=== PATIENT | female | born 1950 | race Caucasian/White ===

== ENCOUNTER 2024-01-03 16:33 | Observation (INO) | payer MEDICARE, OTHER ==
--- NOTE | 2024-01-03 16:39 | ED ---
Altered Mental Status HPI - General Stated Complaint: Behavioral Time Seen by Provider: 01/03/24 16:34 Source: RN notes reviewed, old records reviewed Mode of arrival: ambulatory Limitations: altered mental status - History of Present Illness Initial Comments: Is a 73-year-old female to the ER for evaluation of altered mental status. Patient been acting appropriately for a few days now is a postoperative patient on pain medication at home. Patient received cosmetic surgery facelift and has since been not acting appropriately. No fevers no head injury no travel history no sick contacts MD Complaint: altered mental status, confusion, decreased responsiveness, intoxication, weakness -: days(s) Severity: moderate Consistency of Symptoms: getting worse Context: other (No drug or alcohol use, currently prescribed pain medication opiate) Associated Symptoms: denies other symptoms Treatments Prior to Arrival: other pre-hospital medication (0) - Related Data Home Medications Medication Instructions Recorded Confirmed Acetaminophen/Diphenhydramine 1 tab PO HS PRN 01/03/24 01/03/24 [Tylenol PM 500-25mg] Albuterol Inhaler [Ventolin Hfa 2 puff INHALATION RT-Q4H PRN 01/03/24 01/03/24 Inhaler] DULoxetine HCL [Cymbalta] 60 mg PO DAILY 01/03/24 01/03/24 Levothyroxine Sodium [Synthroid] 150 mcg PO DAILY 01/03/24 01/03/24 Methylphenidate HCl [Ritalin] 20 mg PO BID@0600,1300 01/03/24 01/03/24 Omeprazole 40 mg PO DAILY 01/03/24 01/03/24 Tirzepatide [Mounjaro] 5 mg SQ FR 01/03/24 01/03/24 Triamterene/Hydrochlorothiazid 1 tab PO DAILY 01/03/24 01/03/24 [Triamterene-Hctz 37.5-25 mg Tb] oxyCODONE-APAP 5-325MG [Percocet 1 tab PO Q6H 01/03/24 01/03/24 5-325 mg] Allergies Allergy/AdvReac Type Severity Reaction Status Date / Time No Known Allergies Allergy Verified 01/03/24 18:14 Review of Systems ROS Statement: Those systems with pertinent positive or pertinent negative responses have been documented in the HPI. ROS Other: All systems not noted in ROS Statement are negative. General Exam Limitations: altered mental status General appearance: alert, in no apparent distress Head exam: Present: atraumatic, normocephalic, normal inspection Eye exam: Present: normal appearance, PERRL, EOMI. Absent: scleral icterus, conjunctival injection, periorbital swelling ENT exam: Present: normal exam, mucous membranes moist Neck exam: Present: normal inspection. Absent: tenderness, meningismus, lymphadenopathy Respiratory exam: Present: normal lung sounds bilaterally. Absent: respiratory distress, wheezes, rales, rhonchi, stridor Cardiovascular Exam: Present: regular rate, normal rhythm, normal heart sounds. Absent: systolic murmur, diastolic murmur, rubs, gallop, clicks GI/Abdominal exam: Present: soft, normal bowel sounds. Absent: distended, tenderness, guarding, rebound, rigid Extremities exam: Present: normal inspection, full ROM, normal capillary refill. Absent: tenderness, pedal edema, joint swelling, calf tenderness Back exam: Present: normal inspection Neurological exam: Present: alert, oriented X3, CN II-XII intact Psychiatric exam: Present: normal affect, normal mood Skin exam: Present: warm, dry, intact, normal color. Absent: rash Course Vital Signs 01/03/24 01/03/24 01/03/24 16:44 19:00 21:00 Temperature 98.4 F Pulse Rate 72 77 82 Respiratory 20 18 18 Rate Blood Pressure 128/71 123/77 117/60 O2 Sat by Pulse 95 99 98 Oximetry - Reevaluation(s) Reevaluation #1: 01/03/24 22:07 Medical records reviewed Reevaluation #2: 01/03/24 22:07 Patient is still very delirious seeing people that are not there. 01/03/24 22:08 Talking to people who are not there 01/03/24 22:08 Patient is danger to herself Reevaluation #3: 01/03/24 22:08 Patient family informed results questions answered Reevaluation #4: Was pt. sent in by a medical professional or institution (, PA, SUBSTANCE ABUSE SERVICES DIRECTOR, urgent care, hospital, or shelter...) When possible be specific @ -no Did you speak to anyone other than the patient for history (EMS, parent, family, police, friend...)? What history was obtained from this source @ -no Did you review nursing and triage notes (agree or disagree)? Why? @ -agree Are old charts reviewed (outside hosp., previous admission, EMS record, old EKG, old radiological studies, urgent care reports/EKG's, shelter records)? Report findings @ -yes Differential Diagnosis (chest pain, altered mental status, abdominal pain women, abdominal pain men, vaginal bleeding, weakness, fever, dyspnea, syncope, headache, dizziness, GI bleed, back pain, seizure, CVA, palpatations, mental health, musculoskeletal)? @ -prior EKG interpreted by me (3pts min.). @ -yes X-rays interpreted by me (1pt min.). @ -yes negative for acute disease CT interpreted by me (1pt min.). @ -no U/S interpreted by me (1pt. min.). @ -no What testing was considered but not performed or refused? (CT, X-rays, U/S, labs)? Why? @ -none What meds were considered but not given or refused? Why? @ -none Did you discuss the management of the patient with other professionals (professionals i.e. , PA, SUBSTANCE ABUSE SERVICES DIRECTOR, lab, RT, psych nurse, family welfare social work professor, space systems operations manager, teacher, military police officer, director of casework)? Give summary @ -no Was smoking cessation discussed for >3mins.? @ -no Was critical care preformed (if so, how long)? @ -no Were there social determinants of health that impacted care today? How? (Homelessness, low income, unemployed, alcoholism, drug addiction, transportation, low edu. Level, literacy, decrease access to med. care, long-term, rehab)? @ -none Was there de-escalation of care discussed even if they declined (Discuss DNR or withdrawal of care, Hospice)? DNR status @ -no What co-morbidities impacted this encounter? (DM, HTN, Smoking, COPD, CAD, Cancer, CVA, ARF, Chemo, Hep., AIDS, mental health diagnosis, sleep apnea, morbid obesity)? @ -none Was patient admitted / discharged? Hospital course, mention meds given and route, prescriptions, significant lab abnormalities, going to OR and other pertinent info. @ - Undiagnosed new problem with uncertain prognosis? @ -no Drug Therapy requiring intensive monitoring for toxicity (Heparin, Nitro, Insulin, Cardizem)? @ -no Were any procedures done? @ -no Diagnosis/symptom? @ - Acute, or Chronic, or Acute on Chronic? @ -Acute Uncomplicated (without systemic symptoms) or Complicated (systemic symptoms)? @ -Complicated Side effects of treatment? @ -no Exacerbation, Progression, or Severe Exacerbation? @ -exacerbation Poses a threat to life or bodily function? How? (Chest pain, [place], [place], pneumonia, PE, COPD, DKA, ARF, appy, cholecystitis, CVA, Diverticulitis, Homicidal, Suicidal, threat to staff... and all critical care pts) @ -yes Reevaluation #5: Differential Altered Mental Status: Hypoglycemia, DKA, hypercapnia, ETOH, overdose, CO poisoning, trauma, myxedema coma, HTN encephalopathy, infection, encephalitis, psychosis, intercranial hemorrhage, hepatic encephalopathy, meningitis, CVA, this is not meant to be an all-inclusive list - Consultations Consultation #1: Poke with sound to admit this patient Medical Decision Making - Medical Decision Making 83 female will be admitted for altered mental status delirium acute - Lab Data Result diagrams: 01/03/24 17:28 Lab Results 01/03/24 01/03/24 01/03/24 Range/Units 17:28 17:28 17:28 WBC 6.5 (3.8-10.6) k/uL RBC 4.18 (3.80-5.40) m/uL Hgb 11.2 L (11.4-16.0) gm/dL Hct 35.6 (34.0-46.0) % MCV 85.1 (80.0-100.0) fL MCH 26.7 (25.0-35.0) pg MCHC 31.4 (31.0-37.0) g/dL RDW 14.3 (11.5-15.5) % Plt Count 219 (150-450) k/uL MPV 8.3 Neutrophils % 58 % Lymphocytes % 31 % Monocytes % 5 % Eosinophils % 3 % Basophils % 1 % Neutrophils # 3.8 (1.3-7.7) k/uL Lymphocytes # 2.0 (1.0-4.8) k/uL Monocytes # 0.3 (0-1.0) k/uL Eosinophils # 0.2 (0-0.7) k/uL Basophils # 0.1 (0-0.2) k/uL POC Glucose (mg/dL) (70-110) mg/dL POC Glu Director Digital Strategy ID Ammonia (<30) umol/L Urine Color Light Yellow Urine Appearance Cloudy H (Clear) Urine pH 8.0 (5.0-8.0) Ur Specific [place] 1.019 (1.001-1.035) Urine Protein Trace H (Negative) Urine Glucose (UA) Negative (Negative) Urine Ketones Negative (Negative) Urine Blood Negative (Negative) Urine Nitrite Negative (Negative) Urine Bilirubin Negative (Negative) Urine Urobilinogen <2.0 (<2.0) mg/dL Ur Leukocyte Esterase Trace H (Negative) Urine WBC 1 (0-5) /hpf Ur Squamous Epith Cells 7 H (0-4) /hpf Urine Bacteria Rare H (None) /hpf Urine Mucus Rare H (None) /hpf Salicylates <1.0 mg/dL Acetaminophen <10.0 ug/mL Serum Alcohol <10 mg/dL 01/03/24 01/03/24 01/03/24 Range/Units 17:28 17:28 17:39 WBC (3.8-10.6) k/uL RBC (3.80-5.40) m/uL Hgb (11.4-16.0) gm/dL Hct (34.0-46.0) % MCV (80.0-100.0) fL MCH (25.0-35.0) pg MCHC (31.0-37.0) g/dL RDW (11.5-15.5) % Plt Count (150-450) k/uL MPV Neutrophils % % Lymphocytes % % Monocytes % % Eosinophils % % Basophils % % Neutrophils # (1.3-7.7) k/uL Lymphocytes # (1.0-4.8) k/uL Monocytes # (0-1.0) k/uL Eosinophils # (0-0.7) k/uL Basophils # (0-0.2) k/uL POC Glucose (mg/dL) 107 (70-110) mg/dL POC Glu Director Digital Strategy ID Hetal Andino Ammonia <9 (<30) umol/L Urine Color Urine Appearance (Clear) Urine pH (5.0-8.0) Ur Specific [place] (1.001-1.035) Urine Protein (Negative) Urine Glucose (UA) (Negative) Urine Ketones (Negative) Urine Blood (Negative) Urine Nitrite (Negative) Urine Bilirubin (Negative) Urine Urobilinogen (<2.0) mg/dL Ur Leukocyte Esterase (Negative) Urine WBC (0-5) /hpf Ur Squamous Epith Cells (0-4) /hpf Urine Bacteria (None) /hpf Urine Mucus (None) /hpf Salicylates mg/dL Acetaminophen ug/mL Serum Alcohol <10 mg/dL - EKG Data -: EKG Interpreted by Me (EKG is sinus 62 WA 151 QRS 90 QTc 426) - Radiology Data Radiology results: report reviewed (CT brain negative for acutr diseae), image reviewed Disposition Clinical Impression: Altered mental status, Delirium Disposition: ADMITTED IP TO THIS [facility] Condition: Fair Is patient prescribed a controlled substance at d/c from ED?: No Referrals: Ward Scott MD [Primary Care Provider] - 1-2 days Time of Disposition: 22:00
[2024-01-03 17:40] LABS: Glucose,Whole Blood 107 mg/dL (70-110)
[2024-01-03 18:04] LABS: Basophils # (A) 0.1 k/uL (0-0.2); Basophils % (A) 1 %; Eosinophils # (A) 0.2 k/uL (0-0.7); Eosinophils % (A) 3 %; HCT 35.6 % (34.0-46.0); HGB 11.2 gm/dL (11.4-16.0); Lymphocytes % (A) 31 %; MCH 26.7 pg (25.0-35.0); MCHC 31.4 g/dL (31.0-37.0); MCV 85.1 fL (80.0-100.0); Mean Platelet Volume 8.3; Monocytes # (A) 0.3 k/uL (0-1.0); Monocytes % (A) 5 %; Neutrophils # (A) 3.8 k/uL (1.3-7.7); Neutrophils % (A) 58 %; Platelet Count 219 k/uL (150-450); RBC 4.18 m/uL (3.80-5.40); RDW 14.3 % (11.5-15.5); WBC 6.5 k/uL (3.8-10.6)
[2024-01-03 18:10] LABS: Acetaminophen <10.0 ug/mL; Alcohol <10 mg/dL; Salicylate <1.0 mg/dL
[2024-01-03 18:13] LABS: Appearance,Urine Cloudy (Clear); Bacteria,Urine Rare /hpf; Bilirubin,Urine Negative (Negative); Blood,Urine Negative (Negative); Color,Urine Light Yellow; Glucose,Urine (UA) Negative (Negative); Ketones,Urine Negative (Negative); Leukocyte Esterase,Urine Trace (Negative); Mucus,Urine Rare /hpf; Nitrite,Urine Negative (Negative); Protein,Urine Trace (Negative); Specific Gravity,Urine 1.019 (1.001-1.035); Squamous Epithelial Cell,Urine 7 /hpf (0-4); Urobilinogen,Urine <2.0 mg/dL (<2.0); WBC,Urine 1 /hpf (0-5)
[2024-01-03] MEDS: LORazepam 2 MG/ML INJ IV STA ×2 (19:09→22:22)
[2024-01-03] MEDS: SODIUM CHLORIDE 0.9% 500 ML 500 ML IV ONE (19:12)
--- NOTE | 2024-01-03 20:35 | CT ---
EXAMINATION TYPE: CT brain wo con CT DLP: 1107.4 mGycm, Automated exposure control for dose reduction was used. DATE OF EXAM: 01/03/2024 7:59 PM COMPARISON: None.. CLINICAL INDICATION:Female, 73 years old with history of Altered mental status, ams TECHNIQUE: Brain: Axial CT images of the brain were obtained with coronal and sagittal reformats created and rev iewed. Contrast used: None. Oral contrast used: None. FINDINGS: Extra-axial spaces: No abnormal extra-axial fluid collections. Basilar cisterns are patent. Ventricular system: Ventricles are nondilated. Incidental note made of cavum septum pellucidum/cavum vergae. Cerebral parenchyma: No increased attenuation to suggest acute intraparenchymal hemorrhage. The gra y-white matter interface appears maintained. Mild generalized brain atrophy. Scattered hypoattenuat ing areas are seen within the cerebral white matter, nonspecific but most often seen with chronic nelida rovascular ischemic changes; mild in degree. Cerebellum: No acute abnormality. Mass effect: No evidence of mass effect or midline shift. Intracranial vasculature: Unremarkable Soft tissues: There are multiple skin linn in the bilateral scalp. Visualized orbits: Orbital contents appear grossly intact. Calvarium/osseous structures: No evidence of calvarial fracture. Paranasal sinuses and mastoid air cells: Mild mucosal thickening throughout the ethmoid air cells. MR I is more sensitive for detecting acute processes such as infarct, and may be considered if clinicall y warranted. IMPRESSION: 1. No CT evidence of an acute intracranial abnormality. 2. Mild atrophy and chronic microvascular ischemic white matter changes.
[2024-01-03] MEDS ORDERED: NALOXONE 0.4 MG/ML 1 ML VIAL IV PRN (22:05)
[2024-01-03] MEDS ORDERED: LORazepam 2 MG/ML INJ IV PRN (22:07)
[2024-01-03] MEDS: SODIUM CHLORIDE 0.9% 1,000 ML IV SCH (22:22)
[2024-01-03 22:58] LABS: Amphetamine Screen,Urine Not Detected (NotDetected); Barbiturate Screen,Urine Not Detected (NotDetected); Benzodiazepines Screen,Urine Not Detected (NotDetected); Cocaine Screen,Urine Not Detected (NotDetected); Methadone Screen, Urine Not Detected (NotDetected); Opiate Screen,Urine Detected (NotDetected); Oxycodone Screen, Urine Detected (NotDetected); Phencyclidine Screen,Urine Not Detected (NotDetected); Tricyclic Antidepressant,Urine Not Detected (NotDetected); Urn Cannabinoid Scrn Not Detected (NotDetected)
[2024-01-03 23:10] LABS: ALT 12 U/L (4-34); African American GFR (CKD) >90 (>60 ml/min/1.73 sqM); Albumin 3.4 g/dL (3.5-5.0); Anion Gap 2 mmol/L; Blood Urea Nitrogen 15 mg/dL (7-17); Calcium 8.6 mg/dL (8.4-10.2); Carbon Dioxide 23 mmol/L (22-30); Chloride 115 mmol/L (98-107); Glucose 102 mg/dL (74-99); Non-African American GFR(CKD) >90 (>60 ml/min/1.73 sqM); Sodium 140 mmol/L (137-145)
[2024-01-03 23:21] LABS: Potassium 4.8 mmol/L (3.5-5.1); Total Bilirubin 0.7 mg/dL (0.2-1.3); Total Protein 6.4 g/dL (6.3-8.2)
[2024-01-03 23:22] LABS: AST 31 U/L (14-36); Alkaline Phosphatase 61 U/L (38-126)
--- NOTE | 2024-01-04 03:19 | P.HPIM ---
History of Present Illness H&P Date: 01/04/24 Patient is a 73-year-old female with a PMH of hypertension, hypothyroidism, asthma, who recently underwent a facelift 2 weeks ago who presents to the emergency room for hallucinations. The patient was somewhat confused at the time of interview and history thereby supplemented from the chart. The patient does report that she recently underwent the procedure and that she has been taking her pain medications and that she has had periods of confusion and where she has been seeing things that are not quite there. Reports having visual hallucinations at the time of interview. Denied any additional complaints. Denied experiencing chest discomfort, shortness of breath, fever, chills, cough, headaches, weakness, numbness, tingling. Reports she has been taking her Percocets at home. CT brain in the emergency room was unremarkable. EKG revealed sinus rhythm at [address]/T wave changes noted as reviewed by me. Laboratory evaluation revealed a WBC count of 6.5, hemoglobin 11.2, unremarkable UA, with urine toxicology positive for opiates and oxycodone. ED documentation reviewed and case discussed with ED provider. Review of systems: Pertinent positives and negatives as discussed in HPI, a complete review of systems was performed and all other systems are negative. Physical examination: Vital signs reviewed General: non toxic, no distress, appears at stated age, normal weight Derm: Preauricular face left incisions noted with some diffuse mild facial ecchymosis, warm Head: atraumatic, normocephalic, symmetric Eyes: EOMI, no lid lag, anicteric sclera, pupils equal round reactive to light ENT: Nose and ears atraumatic Neck: No cervical lymphadenopathy, trachea midline, supple Mouth: no lip lesion, mucus membranes moist Cardiovascular: S1S2 reg, no murmur, positive dorsalis pedis pulse bilateral, no edema Lungs: CTA bilateral, no rhonchi, no rales, no accessory muscle use Abdominal: soft, nontender to palpation, no guarding Ext: muscle strength 5 out of 5 in all 4 extremities grossly, no gross muscle atrophy, no contractures, Neuro: CN II-XI grossly intact, no gross focal neuro deficits Psych: Alert, oriented to person, place, and time, experiencing visual hallucinations Assessment: Altered mental status with hallucinations, suspect opiate delirium Chronic conditions: Hypertension, hypothyroidism, asthma Imaging: CT brain in the emergency room was unremarkable. EKG revealed sinus rhythm at [address]/T wave changes noted as reviewed by me. Data Review: Laboratory evaluation revealed a WBC count of 6.5, hemoglobin 11.2, unremarkable UA, with urine toxicology positive for opiates and oxycodone. Plan: Frequent reorientation Fall precautions Resume home medications Avoid opiates and further sedatives DVT prophylaxis: Lovenox subcu The patient is admitted with an anticipated less than 2 midnight stay for evaluation of delirium CODE STATUS: Full Code Discussed with: Patient Anticipated discharge place: Home Past Medical History History of Any Multi-Drug Resistant Organisms: None Reported Additional Past Surgical History / Comment(s): facelift 2023 Past Psychological History: ADD/ADHD Smoking Status: Unknown if ever smoked Past Alcohol Use History: None Reported Past Drug Use History: None Reported - Past Family History Mother Family Medical History: Hypertension Medications and Allergies Home Medications Medication Instructions Recorded Confirmed Type Acetaminophen/Diphenhydramine 1 tab PO HS PRN 01/03/24 01/03/24 History [Tylenol PM 500-25mg] Albuterol Inhaler [Ventolin Hfa 2 puff INHALATION RT-Q4H PRN 01/03/24 01/03/24 History Inhaler] DULoxetine HCL [Cymbalta] 60 mg PO DAILY 01/03/24 01/03/24 History Levothyroxine Sodium [Synthroid] 150 mcg PO DAILY 01/03/24 01/03/24 History Methylphenidate HCl [Ritalin] 20 mg PO BID@0600,1300 01/03/24 01/03/24 History Omeprazole 40 mg PO DAILY 01/03/24 01/03/24 History Tirzepatide [Mounjaro] 5 mg SQ FR 01/03/24 01/03/24 History Triamterene/Hydrochlorothiazid 1 tab PO DAILY 01/03/24 01/03/24 History [Triamterene-Hctz 37.5-25 mg Tb] oxyCODONE-APAP 5-325MG [Percocet 1 tab PO Q6H 01/03/24 01/03/24 History 5-325 mg] Allergies Allergy/AdvReac Type Severity Reaction Status Date / Time No Known Allergies Allergy Verified 01/03/24 18:14 Physical Exam Vitals: Vital Signs Temp Pulse Resp BP Pulse Ox 05/20/24 23:41 72 18 104/72 97 01/03/24 22:00 66 20 106/74 98 01/03/24 21:00 82 18 117/60 98 01/03/24 19:00 77 18 123/77 99 01/03/24 16:44 98.4 F 72 20 128/71 95 Intake and Output 01/03/24 01/03/24 01/04/24 14:59 22:59 06:59 Other: Weight 56.245 kg Results CBC & Chem 7: 01/03/24 17:28 01/03/24 22:13 Labs: Abnormal Lab Results - Last 24 Hours (Table) 01/03/24 01/03/24 01/03/24 Range/Units 17:28 17:28 17:28 Hgb 11.2 L (11.4-16.0) gm/dL Chloride (98-107) mmol/L Glucose (74-99) mg/dL Albumin (3.5-5.0) g/dL Urine Appearance Cloudy H (Clear) Urine Protein Trace H (Negative) Ur Leukocyte Esterase Trace H (Negative) Ur Squamous Epith Cells 7 H (0-4) /hpf Urine Bacteria Rare H (None) /hpf Urine Mucus Rare H (None) /hpf Urine Opiates Screen Detected H (NotDetected) Ur Oxycodone Screen Detected H (NotDetected) 01/03/24 Range/Units 22:13 Hgb (11.4-16.0) gm/dL Chloride 115 H (98-107) mmol/L Glucose 102 H (74-99) mg/dL Albumin 3.4 L (3.5-5.0) g/dL Urine Appearance (Clear) Urine Protein (Negative) Ur Leukocyte Esterase (Negative) Ur Squamous Epith Cells (0-4) /hpf Urine Bacteria (None) /hpf Urine Mucus (None) /hpf Urine Opiates Screen (NotDetected) Ur Oxycodone Screen (NotDetected) Thrombosis Risk Factor Assmnt - Choose All That Apply Any of the Below Risk Factors Present?: Yes Each Factor Represents 1 point: History of prior major surgery (<1month) Other Risk Factors: Yes Each Risk Factor Represents 2 Points: Age 61-74 years Other congenital or acquired thrombophilia - If yes, enter type in comment: No Thrombosis Risk Factor Assessment Total Risk Factor Score: 3 Thrombosis Risk Factor Assessment Level: Moderate Risk
[2024-01-04] MEDS: LEVOTHYROXINE 75 MCG TAB PO SCH (06:30)
[2024-01-04 07:10] LABS: Basophils # (A) 0.1 k/uL (0-0.2); Basophils % (A) 1 %; Eosinophils # (A) 0.1 k/uL (0-0.7); Eosinophils % (A) 2 %; HCT 37.2 % (34.0-46.0); HGB 11.7 gm/dL (11.4-16.0); Lymphocytes # (A) 2.1 k/uL (1.0-4.8); Lymphocytes % (A) 36 %; MCH 26.8 pg (25.0-35.0); MCHC 31.5 g/dL (31.0-37.0); Mean Platelet Volume 7.5; Monocytes # (A) 0.2 k/uL (0-1.0); Monocytes % (A) 3 %; Neutrophils # (A) 3.3 k/uL (1.3-7.7); Neutrophils % (A) 56 %; Platelet Count 232 k/uL (150-450); RBC 4.38 m/uL (3.80-5.40); RDW 14.4 % (11.5-15.5); WBC 5.9 k/uL (3.8-10.6)
[2024-01-04 07:22] LABS: ALT 11 U/L (4-34); AST 19 U/L (14-36); African American GFR (CKD) >90 (>60 ml/min/1.73 sqM); Albumin 3.4 g/dL (3.5-5.0); Alkaline Phosphatase 65 U/L (38-126); Anion Gap 3 mmol/L; Blood Urea Nitrogen 13 mg/dL (7-17); Calcium 9.2 mg/dL (8.4-10.2); Carbon Dioxide 26 mmol/L (22-30); Chloride 115 mmol/L (98-107); Glucose 108 mg/dL (74-99); Magnesium 2.1 mg/dL (1.6-2.3); Non-African American GFR(CKD) 90 (>60 ml/min/1.73 sqM); Phosphorus 3.8 mg/dL (2.5-4.5); Potassium 4.1 mmol/L (3.5-5.1); Sodium 144 mmol/L (137-145); Total Bilirubin 0.4 mg/dL (0.2-1.3); Total Protein 6.1 g/dL (6.3-8.2)
[2024-01-04] MEDS ORDERED: LORazepam 1 MG/0.5 ML VIAL IV PRN (08:10)
[2024-01-04] MEDS: ENOXAPARIN 40 MG/0.4 ML SYRINGE SQ SCH (08:55)
[2024-01-04] MEDS: DULoxetine HCL 60 MG CAPSULE.DR PO SCH (08:55)
[2024-01-04] MEDS: TRIAMTERENE-HCTZ 37.5-25MG 1 EACH CAP PO SCH (08:55)
[2024-01-04 09:43] VITALS: BP 117/74; PULSE 66; RESP 18; TEMP 98.5
--- NOTE | 2024-01-04 11:36 | P.DS ---
Providers Date of admission: 01/03/24 22:06 Expected date of discharge: 01/04/24 Attending physician: Loida Mariee MD Primary care physician: Ward Michelle [facility] Course: Altered mental status with hallucinations, suspect opiate delirium Chronic conditions: Hypertension, hypothyroidism, asthma Patient is a 73-year-old female with a PMH of hypertension, hypothyroidism, asthma, who recently underwent a facelift 2 weeks ago who presented to the emergency room for hallucinations. CT brain in the emergency room was unremarkable. EKG revealed sinus rhythm at [address]/T wave changes noted as reviewed by me. Laboratory evaluation revealed a WBC count of 6.5, hemoglobin 11.2, unremarkable UA, with urine toxicology positive for opiates and oxycodone. Patient's visual hallucinations improved after the discontinuation o f both Ritalin and oxycodone. Patient was advised to stop taking both of these medications and follow-up with the primary care physicians as well as her plastic surgeon for further recommendations. She was alert and oriented x 4 upon discharge. Gen: In NAD, non-toxic HEENT: normocephalic, atraumatic, hearing acuity is intant, mucous membranes moist CVS: perfusing all extremities well, no pitting edema, Respiratory: symmetric chest expansion, no accessory muscle use, GI: soft, NTTP, ND, : no suprapubic tenderness, no CVA tenderness MSK/Derm: no rashes, cyanosis Neuro: CN II-XII intact, no motor weakness, Psych: cooperative, euthymic mood, judgment and insight is intact Patient Condition at Discharge: Good Plan - Discharge Summary Discharge Rx Participant: No New Discharge Prescriptions: Continue DULoxetine HCL [Cymbalta] 60 mg PO DAILY Tirzepatide [Mounjaro] 5 mg SQ FR Levothyroxine Sodium [Synthroid] 150 mcg PO DAILY Triamterene/Hydrochlorothiazid [Triamterene-Hctz 37.5-25 mg Tb] 1 tab PO DAILY Omeprazole 40 mg PO DAILY Albuterol Inhaler [Ventolin Hfa Inhaler] 2 puff INHALATION RT-Q4H PRN PRN Reason: Shortness Of Breath Discontinued Methylphenidate HCl [Ritalin] 20 mg PO BID@0600,1300 oxyCODONE-APAP 5-325MG [Percocet 5-325 mg] 1 tab PO Q6H Acetaminophen/Diphenhydramine [Tylenol PM 500-25mg] 1 tab PO HS PRN PRN Reason: PAIN/SLEEP Discharge Medication List Albuterol Inhaler [Ventolin Hfa Inhaler] 2 puff INHALATION RT-Q4H PRN 01/03/24 [History] DULoxetine HCL [Cymbalta] 60 mg PO DAILY 01/03/24 [History] Levothyroxine Sodium [Synthroid] 150 mcg PO DAILY 01/03/24 [History] Omeprazole 40 mg PO DAILY 01/03/24 [History] Tirzepatide [Mounjaro] 5 mg SQ FR 01/03/24 [History] Triamterene/Hydrochlorothiazid [Triamterene-Hctz 37.5-25 mg Tb] 1 tab PO DAILY 01/03/24 [History] Follow up Appointment(s)/Referral(s): Ward Scott MD [Primary Care Provider] - 1-2 days Discharge Disposition: HOME SELF-CARE
== END 2024-01-04 12:38 | disposition home or self-care (01) ==
LOC: EC 16:33 → 6NMEDSUR 22:06
PROVIDERS: ADMIT Internal Medicine; ATTEND Internal Medicine
DX: R41.82 Altered mental status, unspecified (principal); R45.851 Suicidal ideations; I10 Essential (primary) hypertension; E03.9 Hypothyroidism, unspecified; J45.909 Unspecified asthma, uncomplicated; Z79.899 Other long term (current) drug therapy; Z82.49 Family history of ischemic heart disease and other diseases of the circulatory system; F90.9 Attention-deficit hyperactivity disorder, unspecified type
CPT/HCPCS: 96372; 96376; 96374; 99285; 36415; 93005; 80053 ×2; 82140; 83735; 84100; 85025 ×2; 81001; 80306; 80143; 80320; 80179; 70450; G0378 ×2; J2060; J1650

== ENCOUNTER → 2024-01-06 | Outpatient (CLI) | payer OTHER ==
[2024-01-07 02:35] LABS: ALT 13 U/L (8-44); AST 17 U/L (13-35); Albumin 4.3 g/dL (3.8-4.9); Albumin/Globulin Ratio 1.59 Ratio (1.60-3.17); Alkaline Phosphatase 75 U/L (41-126); BUN/Creat Ratio 21.89 Ratio (12.00-20.00); Blood Urea Nitrogen 19.7 mg/dL (9.0-27.0); Calcium 9.5 mg/dL (8.7-10.3); Carbon Dioxide 28.4 mmol/L (21.6-31.8); Chloride 104 mmol/L (96-109); Globulin 2.7 g/dL (1.6-3.3); Glucose 105 mg/dL (70-110); Potassium 4.2 mmol/L (3.5-5.5); Sodium 142 mmol/L (135-145); Total Bilirubin <0.2 mg/dL (0.3-1.2)
[2024-01-07 02:38] LABS: Basophils # (A) 0.06 X 10*3/uL (0.00-0.10); Basophils % (A) 0.7 %; Eosinophils # (A) 0.13 X 10*3/uL (0.04-0.35); Eosinophils % (A) 1.6 %; HCT 40.9 % (37.2-46.3); HGB 12.3 g/dL (12.0-15.0); Lymphocytes # (A) 2.63 X 10*3/uL (0.90-5.00); Lymphocytes % (A) 32.6 %; MCH 25.8 pg (27.0-32.0); MCHC 30.1 g/dL (32.0-37.0); MCV 85.7 FL (80.0-97.0); Monocytes # (A) 0.33 X 10*3/uL (0.20-1.00); Monocytes % (A) 4.1 %; NRBC Per 100 WBC 0 X 10*3/uL (0.00-0.01); Neutrophils # (A) 4.88 X 10*3/uL (1.80-7.70); Neutrophils % (A) 60.5 %; Platelet Count 307 X 10*3/uL (140-440); RBC 4.77 X 10*6/uL (4.10-5.20); RDW 14.7 % (11.5-14.5); WBC 8.07 X 10*3/uL (4.50-10.00)
== END | disposition home or self-care (01) ==
LOC: LABWHC1 14:41
PROVIDERS: ATTEND Family Medicine
DX: R41.0 Disorientation, unspecified (principal)
CPT/HCPCS: 36415; 80053; 85025

== ENCOUNTER → 2024-01-06 | Outpatient (CLI) | payer OTHER ==
--- NOTE | 2024-01-06 14:55 | CT ---
EXAMINATION TYPE: CT brain wo con DATE OF EXAM: 01/06/2024 COMPARISON: 01/03/2024 HISTORY: Disorientation. CT DLP: 1135 mGycm Automated exposure control for dose reduction was used. Findings: The ventricles, basal cisterns and sulci over the convexities are within normal limits and there is n o mass effect or shift of midline structures. No abnormal density is seen throughout the brain parenchyma and there is no acute intra or extra-axia l hemorrhage. The posterior fossa including the brainstem, fourth ventricle and cerebellar pontine angles appear no rmal. Intraorbital contents appear normal and symmetric. Visualized paranasal sinuses and mastoid air cells are well aerated. The calvarium is intact. There are skin linn in the scalp overlying the occipital bones and tempor al bones bilaterally. IMPRESSION: No significant abnormality seen. There is no acute bleed or mass effect.
== END | disposition home or self-care (01) ==
LOC: RADCTMAIN 14:25
PROVIDERS: ATTEND Family Medicine
DX: R41.0 Disorientation, unspecified (principal)
CPT/HCPCS: 70450

== ENCOUNTER 2024-05-13 22:30 | Observation (INO) | payer MEDICARE, OTHER ==
[2024-05-13 23:18] LABS: Basophils # (A) 0.1 k/uL (0-0.2); Basophils % (A) 1 %; Eosinophils # (A) 0.1 k/uL (0-0.7); Eosinophils % (A) 1 %; HCT 37.7 % (34.0-46.0); HGB 12.6 gm/dL (11.4-16.0); Lymphocytes # (A) 2.7 k/uL (1.0-4.8); Lymphocytes % (A) 34 %; MCH 27.6 pg (25.0-35.0); MCHC 33.4 g/dL (31.0-37.0); MCV 82.8 fL (80.0-100.0); Mean Platelet Volume 7.7; Monocytes # (A) 0.4 k/uL (0-1.0); Monocytes % (A) 4 %; Neutrophils # (A) 4.5 k/uL (1.3-7.7); Neutrophils % (A) 58 %; Platelet Count 223 k/uL (150-450); RBC 4.55 m/uL (3.80-5.40); RDW 13.8 % (11.5-15.5); WBC 7.9 k/uL (3.8-10.6)
[2024-05-13 23:29] LABS: ALT 21 U/L (4-34); AST 31 U/L (14-36); African American GFR (CKD) 51 (>60 ml/min/1.73 sqM); Albumin 3.9 g/dL (3.5-5.0); Alkaline Phosphatase 77 U/L (38-126); Anion Gap 6 mmol/L; Blood Urea Nitrogen 53 mg/dL (7-17); Calcium 9.9 mg/dL (8.4-10.2); Carbon Dioxide 24 mmol/L (22-30); Chloride 107 mmol/L (98-107); Glucose 118 mg/dL (74-99); Non-African American GFR(CKD) 44 (>60 ml/min/1.73 sqM); Potassium 2.9 mmol/L (3.5-5.1); Sodium 137 mmol/L (137-145); Total Bilirubin 0.9 mg/dL (0.2-1.3); Total Protein 6.7 g/dL (6.3-8.2)
[2024-05-13 23:39] LABS: NT-Pro-B-Type Natriuretic Pept 64 pg/mL
[2024-05-13 23:44] LABS: Partial Thromboplastin Time 23.4 sec (22.0-30.0); Prothrombin Time 11.2 sec (10.0-12.5)
[2024-05-13 23:52] LABS: Appearance,Urine Clear (Clear); Bacteria,Urine Rare /hpf; Bilirubin,Urine Negative (Negative); Blood,Urine Negative (Negative); Color,Urine Light Yellow; Glucose,Urine (UA) Negative (Negative); Hyaline Casts,Urine 67 /lpf (0-2); Ketones,Urine Negative (Negative); Leukocyte Esterase,Urine Trace (Negative); Mucus,Urine Rare /hpf; Nitrite,Urine Negative (Negative); PH, Urine 5.5 (5.0-8.0); Protein,Urine Negative (Negative); RBC,Urine 1 /hpf (0-5); Specific Gravity,Urine 1.019 (1.001-1.035); Squamous Epithelial Cell,Urine 4 /hpf (0-4); Urobilinogen,Urine <2.0 mg/dL (<2.0); WBC,Urine 3 /hpf (0-5)
--- NOTE | 2024-05-14 02:12 | XR ---
EXAM: XR Chest, 2 Views CLINICAL HISTORY: ITS.REASON XR Reason: difficulty breathing TECHNIQUE: Frontal and lateral views of the chest. COMPARISON: No previous studies. FINDINGS: Lungs: Unremarkable. No consolidative changes. Pleural space: Unremarkable. No pneumothorax. No pleural effusions. Heart: Heart is normal in size. No cardiomegaly. Mediastinum: Unremarkable. Normal mediastinal contour. 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 No acute fracture. Vasculature: Minimal atherosclerotic disease of the aortic knob. Upper abdomen: Surgical clips of the right upper quadrant are indicative of previous cholecystectomy. IMPRESSION: 1. Minimal atherosclerotic disease. 2. No consolidative changes or pleural effusions.
[2024-05-14] MEDS: SODIUM CHLORIDE 0.9% 500 ML 500 ML IV STA (02:52)
[2024-05-14] MEDS: POTASSIUM CHLORIDE ER 20 MEQ TAB.ER PO STA ×2 (02:53→12:43)
--- NOTE | 2024-05-14 03:01 | ED ---
General Adult HPI - General Chief complaint: Shortness of Breath Stated complaint: SOB, Chest pain, Back pain Time Seen by Provider: 05/13/24 23:07 Source: patient Mode of arrival: ambulatory Limitations: no limitations - History of Present Illness Initial comments: This patient is a 73-year-old woman who presents to have evaluation for constellation of symptoms. The patient states she was concerned because she thinks she has bug bites. She indicates a number of skin sores throughout the extremities and on the trunk. She states that her home had a flea infestation, but an respiratory care specialist had come out and treated the home, but she continues to have skin ulcers. The patient states this has been going on for a number of months, since she had a facelift performed in December or January. She also has been having palpitations and dyspnea. Patient denies fever or chills. No chest pain or productive cough. She has not noted worsening or relieving factors. No leg pain or swelling. No change in urination or bowel movements. -: month(s) Severity scale (1-10): 0 Consistency: intermittent Improves with: none Worsens with: none Associated Symptoms: rash, shortness of breath Treatments Prior to Arrival: none - Related Data Home Medications Medication Instructions Recorded Confirmed Albuterol Inhaler [Ventolin Hfa 2 puff INHALATION RT-Q4H PRN 01/03/24 05/14/24 Inhaler] Omeprazole 40 mg PO DAILY 01/03/24 05/14/24 Tirzepatide [Mounjaro] 5 mg SQ TU 01/03/24 05/14/24 Acetylcysteine [Nac] 500 mg PO DAILY 05/14/24 05/14/24 DULoxetine HCL [Cymbalta] 60 mg PO DAILY 05/14/24 05/14/24 Desonide [Cal-Joseph 0.05%] 1 applic TOPICAL BID 05/14/24 05/14/24 Doxepin [SINEquan] 10 - 20 mg PO HS PRN 05/14/24 05/14/24 Methylphenidate HCl [Ritalin] 20 mg PO BID 05/14/24 05/14/24 Mupirocin 2% Oint [Bactroban 2% 1 applic TOPICAL TID PRN 05/14/24 05/14/24 Oint] Nystatin [Nystatin Oral Susp] 5 ml PO DAILY 05/14/24 05/14/24 Ondansetron Odt [Zofran ODT] 8 mg PO Q8HR PRN 05/14/24 05/14/24 Pramipexole [Mirapex] 0.125 mg PO HS 05/14/24 05/14/24 Triamcinolone 0.1% Paste [Oralone 1 applic MUCOUS MEM BID 05/14/24 05/14/24 0.1% Paste] Previous Rx's Medication Instructions Recorded Permethrin 5% Cream [Elimite] 1 applic TOPICAL ONCE #60 gm 05/14/24 Levothyroxine Sodium 100 mcg PO DAILY #30 tab 05/15/24 Allergies Allergy/AdvReac Type Severity Reaction Status Date / Time No Known Allergies Allergy Verified 05/14/24 10:17 Review of Systems ROS Statement: Those systems with pertinent positive or pertinent negative responses have been documented in the HPI. ROS Other: All systems not noted in ROS Statement are negative. Constitutional: Denies: fever, chills, weakness Respiratory: Reports: as per HPI, dyspnea. Denies: cough, wheezes, hemoptysis Cardiovascular: Denies: chest pain, palpitations, orthopnea, edema, syncope Gastrointestinal: Denies: abdominal pain, nausea, vomiting, diarrhea Genitourinary: Denies: dysuria, hematuria Musculoskeletal: Denies: back pain Skin: Reports: as per HPI, lesions Neurological: Denies: headache, weakness, numbness Psychiatric: Reports: anxiety Past Medical History Past Medical History: Diabetes Mellitus Additional Past Medical History / Comment(s): Restless leg History of Any Multi-Drug Resistant Organisms: None Reported Additional Past Surgical History / Comment(s): facelift 2023. thyroidectomy Past Psychological History: ADD/ADHD Smoking Status: Unknown if ever smoked Past Alcohol Use History: None Reported Past Drug Use History: None Reported - Past Family History Mother Family Medical History: Hypertension General Exam Limitations: no limitations General appearance: alert, in no apparent distress Head exam: Present: atraumatic, normocephalic Eye exam: Present: normal appearance. Absent: scleral icterus, conjunctival injection ENT exam: Present: normal oropharynx, mucous membranes moist Neck exam: Present: normal inspection Respiratory exam: Present: normal lung sounds bilaterally. Absent: respiratory distress, wheezes, rales, rhonchi, stridor, chest wall tenderness, accessory muscle use Cardiovascular Exam: Present: regular rate, normal rhythm, normal heart sounds. Absent: systolic murmur, diastolic murmur, rubs, gallop GI/Abdominal exam: Present: soft. Absent: distended, tenderness, guarding, rebound, rigid, mass Extremities exam: Present: normal inspection, normal capillary refill. Absent: pedal edema, calf tenderness Back exam: Present: normal inspection. Absent: CVA tenderness (R), CVA tenderness (L) Neurological exam: Present: alert. Absent: oriented X3, CN II-XII intact Skin exam: Present: warm, dry, normal color, other (The patient has multiple excoriations/ulcerations throughout the extremities and the trunk. There is not appear to be any purulent drainage or evidence of superinfection.) Course Vital Signs 05/13/24 05/14/24 05/14/24 22:38 06:44 09:53 Temperature 98.4 F Pulse Rate 89 72 68 Respiratory 15 17 18 Rate Blood Pressure 109/72 96/53 100/62 O2 Sat by Pulse 100 99 100 Oximetry Medical Decision Making - Medical Decision Making Patient is a 73-year-old woman whose workup here is largely unremarkable, except for what appears to be some mild dehydration and hypokalemia. Patient did receive potassium supplementation and fluids. I discussed having discharge and follow-up with dermatology and the patient became despondent and was hyperventilating. 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 Will admit for further consultations Was pt. sent in by a medical professional or institution (, PA, [employer], urgent care, hospital, or custodial...) When possible be specific @ -[No] Did you speak to anyone other than the patient for history (EMS, parent, family, police, friend...)? What history was obtained from this source @ -[No] Did you review nursing and triage notes (agree or disagree)? Why? @ -[I reviewed and agree with nursing and triage notes] Were old charts reviewed (outside hosp., previous admission, EMS record, old EKG, old radiological studies, urgent care reports/EKG's, custodial records)? Report findings @ -[No old charts were reviewed] Differential Diagnosis (chest pain, altered mental status, abdominal pain women, abdominal pain men, vaginal bleeding, weakness, fever, dyspnea, syncope, headache, dizziness, GI bleed, back pain, seizure, CVA, palpatations, mental health, musculoskeletal)? @ -[Differential Mental Health Depression, anxiety, bipolar, psychosis, schizophrenia, borderline personality, situational depression, adjustment disorder, behavioral disorder, brain tumor, malingering, substance abuse, encephalopathy, medication reaction, dementia, hypothyroidism, degenerative neurologic disorder, lupus.... This is not meant to be all-inclusive list EKG interpreted by me (3pts min.). @ -[As above] X-rays interpreted by me (1pt min.). @ -[None done] CT interpreted by me (1pt min.). @ -[None done] U/S interpreted by me (1pt. min.). @ -[None done] What testing was considered but not performed or refused? (CT, X-rays, U/S, labs)? Why? @ -[None] What meds were considered but not given or refused? Why? @ -[None] Did you discuss the management of the patient with other professionals (professionals i.e. , PA, [employer], lab, RT, psych nurse, criminal justice social worker, benefits officer, teacher, restoration officer, case finishing machine adjuster)? Give summary @ -[No] Was smoking cessation discussed for >3mins.? @ -[No] Was critical care preformed (if so, how long)? @ -[No] Were there social determinants of health that impacted care today? How? (Homelessness, low income, unemployed, alcoholism, drug addiction, transportation, low edu. Level, literacy, decrease access to med. care, group home, rehab)? @ -[No] Was there de-escalation of care discussed even if they declined (Discuss DNR or withdrawal of care, Hospice)? DNR status @ -[No] What co-morbidities impacted this encounter? (DM, HTN, Smoking, COPD, CAD, Cancer, CVA, ARF, Chemo, Hep., AIDS, mental health diagnosis, sleep apnea, morbid obesity)? @ -[None] Was patient admitted / discharged? Hospital course, mention meds given and route, prescriptions, significant lab abnormalities, going to OR and other pertinent info. @ -[As above Undiagnosed new problem with uncertain prognosis? @ -[No] Drug Therapy requiring intensive monitoring for toxicity (Heparin, Nitro, Insuli n, Cardizem)? @ -[No] Were any procedures done? @ -[No] Diagnosis/symptom? @ -[Acute psychosis Acute dermatitis Possible hyperthyroidism Acute, or Chronic, or Acute on Chronic? @ -[Acute Uncomplicated (without systemic symptoms) or Complicated (systemic symptoms)? @ -[Uncomplicated Side effects of treatment? @ -[No] Exacerbation, Progression, or Severe Exacerbation? @ -[No] Poses a threat to life or bodily function? How? (Chest pain, USA, NM, pneumonia, PE, COPD, DKA, ARF, appy, cholecystitis, CVA, Diverticulitis, Homicidal, Suicidal, threat to staff... and all critical care pts) @ -[No] - Lab Data Result diagrams: 05/13/24 23:05 05/16/24 03:52 Lab Results 05/13/24 05/13/24 05/13/24 Range/Units 23:05 23:05 23:05 WBC 7.9 (3.8-10.6) k/uL RBC 4.55 (3.80-5.40) m/uL Hgb 12.6 (11.4-16.0) gm/dL Hct 37.7 (34.0-46.0) % MCV 82.8 (80.0-100.0) fL MCH 27.6 (25.0-35.0) pg MCHC 33.4 (31.0-37.0) g/dL RDW 13.8 (11.5-15.5) % Plt Count 223 (150-450) k/uL MPV 7.7 Neutrophils % 58 % Lymphocytes % 34 % Monocytes % 4 % Eosinophils % 1 % Basophils % 1 % Neutrophils # 4.5 (1.3-7.7) k/uL Lymphocytes # 2.7 (1.0-4.8) k/uL Monocytes # 0.4 (0-1.0) k/uL Eosinophils # 0.1 (0-0.7) k/uL Basophils # 0.1 (0-0.2) k/uL PT 11.2 (10.0-12.5) sec INR 1.0 (<1.2) APTT 23.4 (22.0-30.0) sec Sodium 137 (137-145) mmol/L Potassium 2.9 L (3.5-5.1) mmol/L Chloride 107 (98-107) mmol/L Carbon Dioxide 24 (22-30) mmol/L Anion Gap 6 mmol/L BUN 53 H (7-17) mg/dL Creatinine 1.22 H (0.52-1.04) mg/dL Est GFR (CKD-EPI)AfAm 51 (>60 ml/min/1.73 sqM) Est GFR (CKD-EPI)NonAf 44 (>60 ml/min/1.73 sqM) Glucose 118 H (74-99) mg/dL Plasma Lactic Acid Michael (0.7-2.0) mmol/L Calcium 9.9 (8.4-10.2) mg/dL Total Bilirubin 0.9 (0.2-1.3) mg/dL AST 31 (14-36) U/L ALT 21 (4-34) U/L Alkaline Phosphatase 77 (38-126) U/L Troponin I (0.000-0.034) ng/mL C-Reactive Protein (<1.0) mg/dL NT-Pro-B Natriuret Pep 64 pg/mL Total Protein 6.7 (6.3-8.2) g/dL Albumin 3.9 (3.5-5.0) g/dL TSH (0.465-4.680) mIU/L Urine Color Urine Appearance (Clear) Urine pH (5.0-8.0) Ur Specific [place] (1.001-1.035) Urine Protein (Negative) Urine Glucose (UA) (Negative) Urine Ketones (Negative) Urine Blood (Negative) Urine Nitrite (Negative) Urine Bilirubin (Negative) Urine Urobilinogen (<2.0) mg/dL Ur Leukocyte Esterase (Negative) Urine RBC (0-5) /hpf Urine WBC (0-5) /hpf Urine WBC Clumps (None) /hpf Ur Squamous Epith Cells (0-4) /hpf Urine Bacteria (None) /hpf Hyaline Casts (0-2) /lpf Urine Mucus (None) /hpf 05/13/24 05/13/24 05/13/24 Range/Units 23:05 23:05 23:05 WBC (3.8-10.6) k/uL RBC (3.80-5.40) m/uL Hgb (11.4-16.0) gm/dL Hct (34.0-46.0) % MCV (80.0-100.0) fL MCH (25.0-35.0) pg MCHC (31.0-37.0) g/dL RDW (11.5-15.5) % Plt Count (150-450) k/uL MPV Neutrophils % % Lymphocytes % % Monocytes % % Eosinophils % % Basophils % % Neutrophils # (1.3-7.7) k/uL Lymphocytes # (1.0-4.8) k/uL Monocytes # (0-1.0) k/uL Eosinophils # (0-0.7) k/uL Basophils # (0-0.2) k/uL PT (10.0-12.5) sec INR (<1.2) APTT (22.0-30.0) sec Sodium (137-145) mmol/L Potassium (3.5-5.1) mmol/L Chloride (98-107) mmol/L Carbon Dioxide (22-30) mmol/L Anion Gap mmol/L BUN (7-17) mg/dL Creatinine (0.52-1.04) mg/dL Est GFR (CKD-EPI)AfAm (>60 ml/min/1.73 sqM) Est GFR (CKD-EPI)NonAf (>60 ml/min/1.73 sqM) Glucose (74-99) mg/dL Plasma Lactic Acid Michael 0.8 (0.7-2.0) mmol/L Calcium (8.4-10.2) mg/dL Total Bilirubin (0.2-1.3) mg/dL AST (14-36) U/L ALT (4-34) U/L Alkaline Phosphatase (38-126) U/L Troponin I <0.012 (0.000-0.034) ng/mL C-Reactive Protein <0.5 (<1.0) mg/dL NT-Pro-B Natriuret Pep pg/mL Total Protein (6.3-8.2) g/dL Albumin (3.5-5.0) g/dL TSH (0.465-4.680) mIU/L Urine Color Urine Appearance (Clear) Urine pH (5.0-8.0) Ur Specific [place] (1.001-1.035) Urine Protein (Negative) Urine Glucose (UA) (Negative) Urine Ketones (Negative) Urine Blood (Negative) Urine Nitrite (Negative) Urine Bilirubin (Negative) Urine Urobilinogen (<2.0) mg/dL Ur Leukocyte Esterase (Negative) Urine RBC (0-5) /hpf Urine WBC (0-5) /hpf Urine WBC Clumps (None) /hpf Ur Squamous Epith Cells (0-4) /hpf Urine Bacteria (None) /hpf Hyaline Casts (0-2) /lpf Urine Mucus (None) /hpf 05/13/24 05/13/24 Range/Units 23:05 23:22 WBC (3.8-10.6) k/uL RBC (3.80-5.40) m/uL Hgb (11.4-16.0) gm/dL Hct (34.0-46.0) % MCV (80.0-100.0) fL MCH (25.0-35.0) pg MCHC (31.0-37.0) g/dL RDW (11.5-15.5) % Plt Count (150-450) k/uL MPV Neutrophils % % Lymphocytes % % Monocytes % % Eosinophils % % Basophils % % Neutrophils # (1.3-7.7) k/uL Lymphocytes # (1.0-4.8) k/uL Monocytes # (0-1.0) k/uL Eosinophils # (0-0.7) k/uL Basophils # (0-0.2) k/uL PT (10.0-12.5) sec INR (<1.2) APTT (22.0-30.0) sec Sodium (137-145) mmol/L Potassium (3.5-5.1) mmol/L Chloride (98-107) mmol/L Carbon Dioxide (22-30) mmol/L Anion Gap mmol/L BUN (7-17) mg/dL Creatinine (0.52-1.04) mg/dL Est GFR (CKD-EPI)AfAm (>60 ml/min/1.73 sqM) Est GFR (CKD-EPI)NonAf (>60 ml/min/1.73 sqM) Glucose (74-99) mg/dL Plasma Lactic Acid Michael (0.7-2.0) mmol/L Calcium (8.4-10.2) mg/dL Total Bilirubin (0.2-1.3) mg/dL AST (14-36) U/L ALT (4-34) U/L Alkaline Phosphatase (38-126) U/L Troponin I (0.000-0.034) ng/mL C-Reactive Protein (<1.0) mg/dL NT-Pro-B Natriuret Pep pg/mL Total Protein (6.3-8.2) g/dL Albumin (3.5-5.0) g/dL TSH <0.015 L (0.465-4.680) mIU/L Urine Color Light Yellow Urine Appearance Clear (Clear) Urine pH 5.5 (5.0-8.0) Ur Specific [place] 1.019 (1.001-1.035) Urine Protein Negative (Negative) Urine Glucose (UA) Negative (Negative) Urine Ketones Negative (Negative) Urine Blood Negative (Negative) Urine Nitrite Negative (Negative) Urine Bilirubin Negative (Negative) Urine Urobilinogen <2.0 (<2.0) mg/dL Ur Leukocyte Esterase Trace H (Negative) Urine RBC 1 (0-5) /hpf Urine WBC 3 (0-5) /hpf Urine WBC Clumps Rare H (None) /hpf Ur Squamous Epith Cells 4 (0-4) /hpf Urine Bacteria Rare H (None) /hpf Hyaline Casts 67 H (0-2) /lpf Urine Mucus Rare H (None) /hpf Disposition Clinical Impression: Dermatitis, Hypokalemia, Anxiety Disposition: HOME SELF-CARE Condition: Fair Is patient prescribed a controlled substance at d/c from ED?: No
[2024-05-14] MEDS ORDERED: ALPRAZolam 0.25 MG TAB PO PRN (03:29)
[2024-05-14] MEDS ORDERED: NALOXONE 0.4 MG/ML 1 ML VIAL IV PRN (03:29)
[2024-05-14] MEDS ORDERED: TEMAZEPAM 15 MG CAP PO PRN (03:29)
--- NOTE | 2024-05-14 09:26 | CT ---
EXAMINATION TYPE: CT brain wo con DATE OF EXAM: 05/14/2024 COMPARISON: 01/06/2024 HISTORY: ams CT DLP: 1096.4 mGycm Automated exposure control for dose reduction was used. Findings: The ventricles, basal cisterns and sulci over the convexities are within normal limits and there is n o mass effect or shift of midline structures. No abnormal density is seen throughout the brain parenchyma and there is no acute intra or extra-axia l hemorrhage. The posterior fossa including the brainstem, fourth ventricle and cerebellar pontine angles appear no rmal. Intraorbital contents appear normal and symmetric. Visualized paranasal sinuses and mastoid air cells are well aerated. The calvarium is intact. IMPRESSION: No significant abnormality seen. There is no acute bleed or mass effect. [facility], , 05/14/2024 9:23 AM
--- NOTE | 2024-05-14 09:48 | P.CNNES ---
History of Present Illness Consult date: 05/14/24 Requesting physician: Keith Fagan Reason for Consult: ams History of Present Illness: This is a 73-year-old woman who presents to the emergency department on 05/13/2024 because of concern of bug bites. Patient is very tangential on providing history. Some of the history is obtained from the ED physician. States she presents to the emergency department because of multiple issues in which she is having shortness of breath, back pain, shoulder pain. Upon asking her about the flea home infestation issues she stated yes she is having that. She stated that since she had her facelift in January 2024 she has been having complication. She stated that she had complication from the anesthetic and she has been hallucinating but could not elaborate. She feels there is a number of skin sores throughout her extremities and on the trunk. She stated that she had an garnishment specialist come out and treat her home but continues to have skin ulcers. She is unsure what dose thinks there are binder. Denies any fevers. Denies F any neck pain. She stated that yesterday she had a headache over the left frontal and she stated was moderate-severe and she felt was a sharp pain denies any radiation. She did have nausea. Denies any photophobia or phonophobia. Denies any focal weakness numbness. Denies any speech difficulty. She feels the headache today is better. She is having palpitation and dyspnea. She does have underlying history of anxiety. Denies any history of seizure or strokes in the past. Some of the work-up during this hospital visit consisted of: CBC with differential is unremarkable Creatinine is 1.22, potassium is 2.9, TSH is less than 0.015 CRP is less than 0.5 Calcium, AST ALT are within normal limits Sodium is within normal limits Review of Systems As per HPI. Past Medical History Past Medical History: Diabetes Mellitus Additional Past Medical History / Comment(s): Restless leg History of Any Multi-Drug Resistant Organisms: None Reported Additional Past Surgical History / Comment(s): facelift 2023. thyroidectomy Past Psychological History: ADD/ADHD Smoking Status: Unknown if ever smoked Past Alcohol Use History: None Reported Past Drug Use History: None Reported - Past Family History Mother Family Medical History: Hypertension Medications and Allergies Home Medications Medication Instructions Recorded Confirmed Type Albuterol Inhaler [Ventolin Hfa 2 puff INHALATION RT-Q4H PRN 01/03/24 05/14/24 History Inhaler] Omeprazole 40 mg PO DAILY 01/03/24 05/14/24 History Tirzepatide [Mounjaro] 5 mg SQ TU 01/03/24 05/14/24 History Triamterene/Hydrochlorothiazid 1 tab PO DAILY 01/03/24 05/14/24 History [Triamterene-Hctz 37.5-25 mg Tb] Acetylcysteine [Nac] 500 mg PO DAILY 05/14/24 05/14/24 History DULoxetine HCL [Cymbalta] 60 mg PO DAILY 05/14/24 05/14/24 History Desonide [Cal-Joseph 0.05%] 1 applic TOPICAL BID 05/14/24 05/14/24 History Doxepin [SINEquan] 10 - 20 mg PO HS PRN 05/14/24 05/14/24 History Doxycycline Monohydrate 100 mg PO BID 05/14/24 05/14/24 History Levothyroxine Sodium [Synthroid] 137 mcg PO DAILY 05/14/24 05/14/24 History Methylphenidate HCl [Ritalin] 20 mg PO BID 05/14/24 05/14/24 History Mupirocin 2% Oint [Bactroban 2% 1 applic TOPICAL TID PRN 05/14/24 05/14/24 History Oint] Nystatin [Nystatin Oral Susp] 5 ml PO DAILY 05/14/24 05/14/24 History Ondansetron Odt [Zofran Odt] 8 mg PO Q8HR PRN 05/14/24 05/14/24 History Permethrin 5% Cream [Elimite] 1 applic TOPICAL ONCE #60 gm 05/14/24 Rx Pramipexole [Mirapex] 0.125 mg PO HS 05/14/24 05/14/24 History Triamcinolone 0.1% Paste [Oralone 1 applic MUCOUS MEM BID 05/14/24 05/14/24 History 0.1% Paste] Allergies Allergy/AdvReac Type Severity Reaction Status Date / Time No Known Allergies Allergy Verified 05/14/24 10:17 Physical Examination - Vital Signs Vital Signs: Vital Signs Temp Pulse Resp BP Pulse Ox 05/14/24 06:44 72 17 96/53 99 05/13/24 22:38 98.4 F 89 15 109/72 100 Intake and Output 05/13/24 05/14/24 05/14/24 22:59 06:59 14:59 Other: Weight 47.627 kg GENERAL: The patient is lying in bed and is not in acute distress. INTEGUMENTARY: She did have cervical lower erythematous lesions throughout her body and unsure if it is from the bites that she states or from scratching NEUROLOGICAL: Higher mental function: The patient is awake, alert, oriented to self, place and time. Patient is following commands. No aphasia and no neglect. Cranial nerves: The pupils are round, equal and reactive to light and accommodation. Visual agee are full to confrontation throughout. Extraocular movement is intact no nystagmus is noted. Facial sensation is normal to touch throughout. The facial strength is normal throughout. Hearing is normal bilaterally to hand rub. Tongue is midline and moved [id number] without any difficulty. No dysarthria is noted. Shoulder shrug is normal bilaterally. Motor: The strength is 5 over 5 throughout. Normal tone and bulk. Cerebellum: Normal finger to nose heel to chapman bilaterally. Sensation: Sensation is normal to touch throughout. Reflexes (right/left):2+ throughout. Plantars are mute bilaterally. Results - Laboratory Findings CBC and BMP: 05/13/24 23:05 05/13/24 23:05 Abnormal Lab Findings: Abnormal Labs 05/13/24 05/13/24 05/13/24 23:05 23:05 23:22 Potassium 2.9 L BUN 53 H Creatinine 1.22 H Glucose 118 H TSH <0.015 L Ur Leukocyte Esterase Trace H Urine WBC Clumps Rare H Urine Bacteria Rare H Hyaline Casts 67 H Urine Mucus Rare H Assessment and Plan Assessment: This is a 73-year-old woman who presents to the emergency department on 05/13/2024 for concern of flea infestation at home and feels she has bug bites throughout extremities and trunk even after having an garnishment specialist in her house. He is tangential and complains of multiple issues. She feels it has been going on since her facelift performed in January 2024. She is having palpitation dyspnea. Her encephalopathy seems possible due to her uncontrolled thyroid. With metabolic encephalopathy in which the patient has acute kidney insufficiency. Will her issue is probably exacerbated by her psychiatric issues Acute kidney injury Abnormal thyroid level with a TSH less than 0.015 History of diabetes mellitus Underlying history of thyroidectomy Underlying history of restless leg syndrome History of and anxiety Plan: I ordered ammonia level, vitamin B12, folate, CT of the head. Order CT angiography of the head and neck. I ordered routine EEG Psychiatry is consulted Will defer the breath of the thyroid to the primary team Recommend the patient to follow-up with the quick print operator as an outpatient Will defer the rest of the medical management to primary and other specialist Thank you for the consultation Dr. Varner will resume neurology service tomorrow AM Time with Patient: Greater than 30
[2024-05-14] MEDS: FAMOTIDINE 20 MG TAB PO SCH (09:52)
--- NOTE | 2024-05-14 10:39 | CT ---
EXAMINATION TYPE: CT angio head neck DATE OF EXAM: 05/14/2024 HISTORY: ams COMPARISON: None CT DLP: 340.4 mGycm. Automated Exposure Control for Dose Reduction was Utilized. TECHNIQUE: CTA scan of the head and neck is performed with IV Contrast, patient injected with 65 mL of Isovue 370, axial images are obtained, coronal and sagittal reformatted images are reviewed. 3D re constructed images are created on an independent workstation and reviewed. FINDINGS: The brachiocephalic origins are widely patent and no significant stenosis. There is no significant stenosis of the common or internal carotid arteries within the neck. There is no stenosis of the vertebral arteries. Intracranially, there is no stenosis, segmental occlusion, sizable aneurysm sac or vascular malformat ion. IMPRESSION:. No significant abnormality seen. NASCET criteria was used in interpretation of this exam? [facility], Workstation: [id number] 05/14/2024 10:36 AM
[2024-05-14] MEDS: QUEtiapine 25 MG TAB PO SCH (10:41)
[2024-05-14] MEDS ORDERED: SODIUM CHLORIDE 0.9% 1,000 ML IV SCH (11:15)
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
[2024-05-14] MEDS: SODIUM CHLORIDE 0.9% 1,000 ML IV SCH (11:25)
--- NOTE | 2024-05-14 12:13 | P.HPIM ---
History of Present Illness 73-year-old female with anxiety disorder and multiple other psychiatric issues came in with complaints of multiple bug bites. Patient has history of ADHD and is on Ritalin. Patient was having delusions patient has extremely low TSH less than 0.015. I am obtaining T4 at this time. Patient potassium is low. Patient is not septic patient is not delirious at this time. Patient has multiple other nonspecific complaints and although workup for those complaints is negative. Patient had history of thyroidectomy in the past patient had a CT of the head and CT angiogram of the head both are negative these were ordered by neurology. REVIEW OF SYSTEMS: All other systems are negative except those mentioned in the HPI PHYSICAL EXAMINATION: GENERAL: The patient is alert and oriented x3, not in any acute distress. Well developed, well nourished. HEENT: Pupils are round and equally reacting to light. EOMI. No scleral icterus. No conjunctival pallor. Normocephalic, atraumatic. No pharyngeal erythema. No thyromegaly. CARDIOVASCULAR: S1 and S2 present. No murmurs, rubs, or gallops. PULMONARY: Chest is clear to auscultation, no wheezing or crackles. ABDOMEN: Soft, nontender, nondistended, normoactive bowel sounds. No palpable organomegaly. MUSCULOSKELETAL: No joint swelling or deformity. EXTREMITIES: No cyanosis, clubbing, or pedal edema. NEUROLOGICAL: Gross neurological examination did not reveal any focal deficits. SKIN: Patient does have some rash consistent with scratching Assessment and plan -Delusions/hallucinations: Patient does have significant anxiety. Appears to be mostly acute psychosis patient was started on Seroquel 25 mg twice a day TSH is low -Low TSH possibly hypothyroidism will obtain a T4 before she is started on methimazole or any beta-ginger. -Hypokalemia potassium will be replaced -Acute renal failure patient was started on IV fluids. Monitor kidney function and electrolytes -Patient was believed to have altered mental status and underwent workup with his brain CT and angiographic CT which are negative. DVT prophylaxis: Early ambulation Past Medical History Past Medical History: Diabetes Mellitus Additional Past Medical History / Comment(s): Restless leg History of Any Multi-Drug Resistant Organisms: None Reported Additional Past Surgical History / Comment(s): facelift 2023. thyroidectomy Past Psychological History: ADD/ADHD Smoking Status: Unknown if ever smoked Past Alcohol Use History: None Reported Past Drug Use History: None Reported - Past Family History Mother Family Medical History: Hypertension Medications and Allergies Home Medications Medication Instructions Recorded Confirmed Type Albuterol Inhaler [Ventolin Hfa 2 puff INHALATION RT-Q4H PRN 01/03/24 05/14/24 History Inhaler] Omeprazole 40 mg PO DAILY 01/03/24 05/14/24 History Tirzepatide [Mounjaro] 5 mg SQ TU 01/03/24 05/14/24 History Triamterene/Hydrochlorothiazid 1 tab PO DAILY 01/03/24 05/14/24 History [Triamterene-Hctz 37.5-25 mg Tb] Acetylcysteine [Nac] 500 mg PO DAILY 05/14/24 05/14/24 History DULoxetine HCL [Cymbalta] 60 mg PO DAILY 05/14/24 05/14/24 History Desonide [Cal-Joseph 0.05%] 1 applic TOPICAL BID 05/14/24 05/14/24 History Doxepin [SINEquan] 10 - 20 mg PO HS PRN 05/14/24 05/14/24 History Doxycycline Monohydrate 100 mg PO BID 05/14/24 05/14/24 History Levothyroxine Sodium [Synthroid] 137 mcg PO DAILY 05/14/24 05/14/24 History Methylphenidate HCl [Ritalin] 20 mg PO BID 05/14/24 05/14/24 History Mupirocin 2% Oint [Bactroban 2% 1 applic TOPICAL TID PRN 05/14/24 05/14/24 History Oint] Nystatin [Nystatin Oral Susp] 5 ml PO DAILY 05/14/24 05/14/24 History Ondansetron Odt [Zofran Odt] 8 mg PO Q8HR PRN 05/14/24 05/14/24 History Permethrin 5% Cream [Elimite] 1 applic TOPICAL ONCE #60 gm 05/14/24 Rx Pramipexole [Mirapex] 0.125 mg PO HS 05/14/24 05/14/24 History Triamcinolone 0.1% Paste [Oralone 1 applic MUCOUS MEM BID 05/14/24 05/14/24 History 0.1% Paste] Allergies Allergy/AdvReac Type Severity Reaction Status Date / Time No Known Allergies Allergy Verified 05/14/24 10:17 Physical Exam Vitals: Vital Signs Temp Pulse Pulse Resp BP BP Pulse Ox 05/14/24 11:28 97.9 F 70 19 106/63 99 05/14/24 09:53 68 18 100/62 100 05/14/24 06:44 72 17 96/53 99 05/13/24 22:38 98.4 F 89 15 109/72 100 Intake and Output 05/13/24 05/14/24 05/14/24 22:59 06:59 14:59 Other: Weight 47.627 kg Results CBC & Chem 7: 05/13/24 23:05 05/13/24 23:05 Labs: Abnormal Lab Results - Last 24 Hours (Table) 05/13/24 05/13/24 05/13/24 Range/Units 23:05 23:05 23:22 Potassium 2.9 L (3.5-5.1) mmol/L BUN 53 H (7-17) mg/dL Creatinine 1.22 H (0.52-1.04) mg/dL Glucose 118 H (74-99) mg/dL TSH <0.015 L (0.465-4.680) mIU/L Ur Leukocyte Esterase Trace H (Negative) Urine WBC Clumps Rare H (None) /hpf Urine Bacteria Rare H (None) /hpf Hyaline Casts 67 H (0-2) /lpf Urine Mucus Rare H (None) /hpf
[2024-05-14] MEDS: METHYLPHENIDATE HCL 10 MG TAB PO SCH (12:42)
[2024-05-14] MEDS: DULoxetine HCL 60 MG CAPSULE.DR PO SCH (12:43)
[2024-05-14] MEDS: ACETAMINOPHEN TAB 325 MG TAB PO PRN (12:55)
--- NOTE | 2024-05-14 13:33 | US ---
EXAMINATION TYPE: US thyroid st tissue head/neck DATE OF EXAM: 05/14/2024 COMPARISON: NONE CLINICAL INDICATION: Female, 73 years old with history of Low TSH; Hx radioactive iodine, halfway hx of thyroid meds. Denies surgical hx GLAND SIZE: Right Lobe: 1.8 x 0.5 x 0.9 cm Overall Parenchyma: heterogenous Left lobe: Unable to visualize Isthmus Thickness: unable to visualize NODULES RIGHT: # of nodules measured on right: 0 LEFT: # of nodules measured on left: 0 ISTHMUS: # of nodules measured in the isthmus: 0 IMPRESSION: 1. Markedly atrophic thyroid gland with a small right lobe and in an visualized left lobe. 2. No thyroid nodules. 2017 ACR TI-RADS LEVEL: 0 *Highest TI-RADS level nodule reported [facility], , 05/14/2024 1:31 PM
[2024-05-15] MEDS: FAMOTIDINE 20 MG TAB PO SCH (07:45)
[2024-05-15 08:03] LABS: Urine Alcohol Negative (Negative); Urine Barbiturate Negative (Negative); Urine Cocaine Negative (Negative); Urine Methadone Negative (Negative); Urine Opiates Negative (Negative); Urine Phencyclidine Negative (Negative)
[2024-05-15 09:11] LABS: BUN/Creat Ratio 39.22 Ratio (12.00-20.00); Blood Urea Nitrogen 35.3 mg/dL (9.0-27.0); Calcium 8.4 mg/dL (8.7-10.3); Carbon Dioxide 22.6 mmol/L (21.6-31.8); Chloride 114 mmol/L (96-109); Glucose 110 mg/dL (70-110); Potassium 3.6 mmol/L (3.5-5.5); Sodium 145 mmol/L (135-145)
[2024-05-15 10:27] LABS: ALT 20 U/L (4-34); AST 25 U/L (14-36); African American GFR (CKD) 64 (>60 ml/min/1.73 sqM); Albumin 3.1 g/dL (3.5-5.0); Albumin/Globulin Ratio 1.1; Alkaline Phosphatase 99 U/L (38-126); Anion Gap 2 mmol/L; Blood Urea Nitrogen 31 mg/dL (7-17); Calcium 9.3 mg/dL (8.4-10.2); Carbon Dioxide 25 mmol/L (22-30); Chloride 116 mmol/L (98-107); Globulin 2.7 g/dL; Glucose 69 mg/dL (74-99); Non-African American GFR(CKD) 56 (>60 ml/min/1.73 sqM); Potassium 4.4 mmol/L (3.5-5.1); Sodium 143 mmol/L (137-145); Total Bilirubin 0.5 mg/dL (0.2-1.3); Total Protein 5.8 g/dL (6.3-8.2)
[2024-05-15 14:22] VITALS: BMI 19.2
--- NOTE | 2024-05-15 14:53 | P.PN ---
Subjective Progress Note Date: 05/15/24 73-year-old female with anxiety disorder and multiple other psychiatric issues came in with complaints of multiple bug bites. Patient has history of ADHD and is on Ritalin. Patient was having delusions patient has extremely low TSH less than 0.015. I am obtaining T4 at this time. Patient potassium is low. Patient is not septic and patient is not delirious at this time. Patient has multiple other nonspecific complaints and although workup for those complaints have all been negative. Patient had history of thyroidectomy in the past patient had a CT of the head and CT angiogram of the head both are negative these were ordered by neurology. 05/15/24 - Patient seen at bedside today. She states that she is feeling about the same as she has been. Neurology had been consulted to see the patient, and following their consultation they noted the patient was very tangential in providing her history. Per neurology's report, the patient stated that she had a facelift done in January 2024 and has been having complications including 1 from the anesthetic and that she has been hallucinating but failed to elaborate further. She denied fever and neck pain however stated that she recently had a headache over the left frontal and stated that it was moderatesevere and felt as though was a sharp pain. She had associated nausea however denies photophobia or phonophobia and denies any focal weakness or speech difficulty. Additionally, psychiatry was consulted and saw the patient. Per their discussion with the patient they noted that she is additionally having increased anxiety over the past 6-8 weeks, and she denies any previous psychiatric hospitalizations. Per their recommendation this acute psychosis is likely secondary to patient's hypothyroidism. Per their recommendation, patient will begin Seroquel 25 mg twice daily and will increase if hallucinations continue, continue her home Ritalin 20 mg twice daily, discontinue Xanax and Restoril. Upon discharge patient levothyroxine will be switched from 130s of micrograms daily to 100 mcg daily. Further recommendation of the patient's psych medications will be made as per psych's further recommendation. New labs - currently pending at time of dictation New imaging - Head/neck ultrasound showed markedly atrophic thyroid gland with a small right lobe and no thyroid nodules REVIEW OF SYSTEMS: CONSTITUTIONAL: No fever, no malaise. CARDIOVASCULAR: No chest pain, no palpitations, no syncope. PULMONARY: No shortness of breath, no cough. GASTROINTESTINAL: No diarrhea, no nausea, no vomiting, no abdominal pain. NEUROLOGICAL: No headaches, no weakness. PHYSICAL EXAMINATION: GENERAL: The patient is alert and oriented x3, not in any acute distress. However confused and with continuing hallucinations. HEENT: Pupils are round and equally reacting to light. EOMI. No scleral icterus. No conjunctival pallor. Normocephalic, atraumatic. No pharyngeal erythema. No thyromegaly. CARDIOVASCULAR: S1 and S2 present. No murmurs, rubs, or gallops. PULMONARY: Chest is clear to auscultation, no wheezing or crackles. ABDOMEN: Soft, nontender, nondistended, normoactive bowel sounds. No palpable o rganomegaly. MUSCULOSKELETAL: No joint swelling or deformity. EXTREMITIES: No cyanosis, clubbing, or pedal edema. NEUROLOGICAL: Gross neurological examination did not reveal any focal deficits. Confused with continuing hallucinations. SKIN: Patient does have some rash consistent with scratching Assessment and plan #Psychosis likely secondary to hypothyroidism Patient was having altered mental status on arrival and continued delusions/hallucinations Brain CT and CTA were done to evaluate altered mental status and were negative Seroquel 25 mg twice daily started, to be increased if patient continues to have hallucinations/delusions #Delusions/hallucinations Seroquel 25 mg twice daily started, to be increased if patient continues to have hallucinations/delusions #Hypothyroidism Patient is a history of thyroidectomy Patient has low TSH, will obtain a T4; on arrival TSH was less than 0.015 Free T4 was normal at 1.68 Patient was taking levothyroxine 137 mcg daily #Hypokalemia Patient potassium on arrival was Patient potassium will be replaced with 40 mEq twice #Acute kidney injury - improving On arrival patient's BUN 53, creatinine 1.22 Patient started on IV fluids 100 mL/h Monitor kidney function electrolytes Labs drawn on 05/15 show BUN of 31 and creatinine of 1.01 #ADHD Patient is on medication at 20 mg twice daily of orbital continued #Anxiety Patient 60 mg twice daily home medication of Cymbalta continued Dictation was produced using [employer] dictation software. please excuse any grammatical, word or spelling errors. Dr. Kia MD I have performed a history and physical examination and medical decision making of this patient, discussed the same with the the resident, and agree with the assessment and plan as written. I performed brief physical exam. Objective - Vital Signs Vital signs: Vital Signs Temp 98.2 F 05/15/24 01:55 Pulse 68 05/15/24 01:55 Resp 17 05/14/24 13:00 BP 90/49 05/15/24 01:55 Pulse Ox 95 05/15/24 01:55 FiO2 Intake & Output 05/14/24 05/15/24 05/15/24 18:59 06:59 18:59 Weight 47.627 kg Other: Voiding Method Toilet Toilet # Voids 1 - Labs CBC & Chem 7: 05/13/24 23:05 05/16/24 03:52 Labs: Abnormal Lab Results - Last 24 Hours (Table) 05/14/24 Range/Units 09:12 Vitamin B12 1122.0 H (200.0-944.0) pg/mL
--- NOTE | 2024-05-15 20:03 | P.PN ---
Subjective Progress Note Date: 05/15/24 She is seen by Dr. Kwesi Garcia. Please refer to his note for details. Patient is a 73-year-old female with altered mental status. Dr. Garcia has felt that it is due to uncontrolled thyroid and metabolic reasons. Patient is fixated that she has fleas in her house and getting bit by them. For a follow-up. Patient states that she keeps on seeing the bugs. The bugs are on her clothes, on herself and in her bed. Patient states that she underwent facelift surgery and believes that it is a reaction of the anesthetic. She has been hallucinating since then. She is not sure of herself. She states that she used to be very outgoing person and she believes that her house is full of ghosts and she sees ghost on the dresser. Objective - Vital Signs Vital signs: Vital Signs Temp 98.0 F 05/15/24 13:57 Pulse 61 05/15/24 13:57 Resp 16 05/15/24 13:57 BP 109/64 05/15/24 13:57 Pulse Ox 99 05/15/24 13:57 FiO2 Intake & Output 05/14/24 05/15/24 05/15/24 18:59 06:59 18:59 Intake Total 120 Balance 120 Weight 47.627 kg 47.627 kg Intake: Oral 120 Other: Voiding Method Toilet Toilet # Voids 1 4 - Exam Patient is alert and awake in no distress. She appears somewhat manicky. Speech and language functions are normal. Muscle strength is normal. She does have some skin guallpa, uncertain from getting of skin from itching or some other reason or a rash. Muscle strength is normal. Gait normal. Sensations equal. - Labs CBC & Chem 7: 05/13/24 23:05 05/15/24 08:52 Labs: Abnormal Lab Results - Last 24 Hours (Table) 05/14/24 05/15/24 05/15/24 Range/Units 09:12 03:13 08:52 Chloride 114 H 116 H (96-109) mmol/L BUN 35.3 H 31 H (9.0-27.0) mg/dL BUN/Creatinine Ratio 39.22 H (12.00-20.00) Ratio Glucose 69 L (74-99) mg/dL Calcium 8.4 L (8.7-10.3) mg/dL Total Protein 5.8 L (6.3-8.2) g/dL Albumin 3.1 L (3.5-5.0) g/dL Vitamin B12 1122.0 H (200.0-944.0) pg/mL Assessment and Plan Assessment: This is a 73-year-old woman who presents to the emergency department on 05/13/2024 with hallucinations and altered mental status. Patient believes she has flea infestation at home and feels she has bug bites throughout extremities and trunk even after having an fishing vessel deckhand in her house. He is tangential and complains of multiple issues. She feels it has been going on since her facelift performed in January 2024. She is having palpitation dyspnea. Her encephalopathy seems possible due to her uncontrolled thyroid. With metabolic encephalopathy in which the patient has acute kidney insufficiency. Will her issue is probably exacerbated by her psychiatric issues Acute kidney injury Abnormal thyroid level with a TSH less than 0.015 History of diabetes mellitus Underlying history of thyroidectomy Underlying history of restless leg syndrome History of and anxiety Plan: CTA of head and neck revealed no significant abnormality. CT head showed no significant abnormality. No acute process. I personally reviewed CT head, agree with the findings. Visualized paranasal sinuses are clear. Blood test shows B12 1122, folate 16.4, free T41.68. Ammonia is <9, UA negative, urine drug screen negative. EEG was performed, which was mildly abnormal due to presence of mixed fast and slow frequency activity, suggestive of medication effect or mild encephalopathy. No focal, lateralized or epileptiform activity was seen. 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 Seroquel has been started at 25 mg twice daily. Patient wants to increase the dose. We will defer to psychiatry. Recommend the patient to follow-up with the project management intern as an outpatient Will defer the rest of the medical management to primary and other specialist Neurologically no other workup indicated. We will sign off. Please reconsult neurology if any other concerns.
--- NOTE | 2024-05-15 20:54 | EEG ---
ELECTROENCEPHALOGRAM REPORT PREAMBLE: This is a 73-year-old female with altered mental status. CURRENT MEDICATIONS: 1. Cymbalta. 2. Pepcid. 3. Neptazane. 4. Ritalin. 5. Seroquel. EEG FINDINGS: This is a 21-channel digital EEG recorded with video component, utilizing 10/20 international system with referential and bipolar montages. The background consists of moderately well-developed, and regulated, mixed frequencies of low-voltage fast frequency beta, intermixed with some 10 hertz alpha and some theta activity seen in bihemispheric region. Background is posterior dominant, and seems to be slightly reactive to eye opening and closing. Photic driving response was seen with some flash frequencies. Different stages of sleep were not seen. No focal or generalized epileptiform activity was seen. IMPRESSION: This is a mildly abnormal EEG due to presence of mixed frequencies including fast and slow frequencies, suggestive of mild encephalopathy or medication effect. No focal, lateralized, or epileptiform activity was seen. MMODL / IJN: [id number] /
[2024-05-16] MEDS: TEMAZEPAM 7.5 MG CAP PO ONE ×2 (00:11→22:06)
[2024-05-16 08:44] LABS: BUN/Creat Ratio 27.43 Ratio (12.00-20.00); Blood Urea Nitrogen 19.2 mg/dL (9.0-27.0); Calcium 8.3 mg/dL (8.7-10.3); Carbon Dioxide 20.2 mmol/L (21.6-31.8); Chloride 116 mmol/L (96-109); Glucose 81 mg/dL (70-110); Potassium 3.8 mmol/L (3.5-5.5); Sodium 142 mmol/L (135-145)
[2024-05-16] MEDS: NICOTINE 21MG/24HR PATCH TRANSDERM STA (11:45)
--- NOTE | 2024-05-16 13:25 | P.PN ---
Subjective Progress Note Date: 05/16/24 73-year-old female with anxiety disorder and multiple other psychiatric issues came in with complaints of multiple bug bites. Patient has history of ADHD and is on Ritalin. Patient was having delusions patient has extremely low TSH less than 0.015. I am obtaining T4 at this time. Patient potassium is low. Patient is not septic and patient is not delirious at this time. Patient has multiple other nonspecific complaints and although workup for those complaints have all been negative. Patient had history of thyroidectomy in the past patient had a CT of the head and CT angiogram of the head both are negative these were ordered by neurology. 05/15/24 - Patient seen at bedside today. She states that she is feeling about the same as she has been. Neurology had been consulted to see the patient, and following their consultation they noted the patient was very tangential in providing her history. Per neurology's report, the patient stated that she had a facelift done in January 2024 and has been having complications including 1 from the anesthetic and that she has been hallucinating but failed to elaborate further. She denied fever and neck pain however stated that she recently had a headache over the left frontal and stated that it was moderatesevere and felt as though was a sharp pain. She had associated nausea however denies photophobia or phonophobia and denies any focal weakness or speech difficulty. Additionally, psychiatry was consulted and saw the patient. Per their discussion with the patient they noted that she is additionally having increased anxiety over the past 6-8 weeks, and she denies any previous psychiatric hospitalizations. Per their recommendation this acute psychosis is likely secondary to patient's hypothyroidism. Per their recommendation, patient will begin Seroquel 25 mg twice daily and will increase if hallucinations continue, continue her home Ritalin 20 mg twice daily, discontinue Xanax and Restoril. Upon discharge patient levothyroxine will be switched from 130s of micrograms daily to 100 mcg daily. Further recommendation of the patient's psych medications will be made as per psych's further recommendation. New labs - currently pending at time of dictation New imaging - Head/neck ultrasound showed markedly atrophic thyroid gland with a small right lobe and no thyroid nodules 05/16/24 - Patient seen at bedside today. She continues to feel that she has bugs all over close in her skin that are biting her. Continues to assert that there are bugs all over her house. Patient stated previously that she "knows" that they are not really there but she continues to see them and feel little of the time. Patient is becoming agitated as she feels that nobody believes her. Patient did express a desire to leave AMA earlier today as she was becoming frustrated, the patient has been optimized medically however the patient's practitioner to have her admitted due to psychiatric reasons. Patient had an EEG done yesterday (05/15) which was deemed mildly abnormal due to the presence of mixed frequencies including fast and slow frequencies, suggestive of mild encephalopathy or medication effect. Psychology has been consulted and have informed that they are continue to follow, will wait for further recommendations from them. New labs -sodium 142, potassium 3.8, BUN 19.2, creatinine 0.7 EEG done on 05/15 was mildly abnormal due to the presence of mixed frequencies including fast and slow frequency, suggestive of mild encephalopathy or medication effect. REVIEW OF SYSTEMS: CONSTITUTIONAL: No fever, no malaise. CARDIOVASCULAR: No chest pain, no palpitations, no syncope. PULMONARY: No shortness of breath, no cough. GASTROINTESTINAL: No diarrhea, no nausea, no vomiting, no abdominal pain. NEUROLOGICAL: No headaches, no weakness. PHYSICAL EXAMINATION: GENERAL: The patient is alert and oriented x3, not in any acute distress. However confused and with continuing hallucinations. HEENT: Pupils are round and equally reacting to light. EOMI. No scleral icterus. No conjunctival pallor. Normocephalic, atraumatic. No pharyngeal erythema. No thyromegaly. CARDIOVASCULAR: S1 and S2 present. No murmurs, rubs, or gallops. PULMONARY: Chest is clear to auscultation, no wheezing or crackles. ABDOMEN: Soft, nontender, nondistended, normoactive bowel sounds. No palpable organomegaly. MUSCULOSKELETAL: No joint swelling or deformity. EXTREMITIES: No cyanosis, clubbing, or pedal edema. NEUROLOGICAL: Gross neurological examination did not reveal any focal deficits. Confused with continuing hallucinations. SKIN: Patient does have some rash consistent with scratching; scabbing present on the lower legs and arms secondary to scratching. Assessment and plan #Psychosis/encephalopathy possibly secondary to hypothyroidism Patient was having altered mental status on arrival and continued delusions/hallucinations Brain CT and CTA were done to evaluate altered mental status and were negative Seroquel 25 mg twice daily started, to be increased if patient continues to have hallucinations/delusions #Delusions/hallucinations Seroquel 25 mg twice daily started, to be increased if patient continues to have hallucinations/delusions #Hypothyroidism Patient is a history of thyroidectomy Patient has low TSH, will obtain a T4; on arrival TSH was less than 0.015 Free T4 was normal at 1.68 Patient was taking levothyroxine 137 mcg daily #Hypokalemia Patient potassium on arrival was Patient potassium will be replaced with 40 mEq twice #Acute kidney injury - resolved On arrival patient's BUN 53, creatinine 1.22 Patient started on IV fluids 100 mL/h Monitor kidney function electrolytes Labs drawn on 05/15 show BUN of 31 and creatinine of 1.01 Labs on showed BUN 19.2, creatinine 0.7 #ADHD Patient is on medication at 20 mg twice daily of orbital continued #Anxiety Patient 60 mg twice daily home medication of Cymbalta continued Dictation was produced using [employer] dictation software. please excuse any grammatical, word or spelling errors. Objective - Vital Signs Vital signs: Vital Signs Temp 98.1 F 05/16/24 06:45 Pulse 55 L 05/16/24 06:45 Resp 16 05/16/24 06:45 BP 137/80 05/16/24 06:45 Pulse Ox 100 05/16/24 06:45 FiO2 Intake & Output 05/15/24 05/16/24 05/16/24 18:59 06:59 18:59 Intake Total 320 Balance 320 Weight 47.627 kg Intake: Oral 320 Other: Voiding Method Toilet # Voids 4 - Labs CBC & Chem 7: 05/13/24 23:05 05/16/24 03:52 Labs: Abnormal Lab Results - Last 24 Hours (Table) 05/15/24 05/15/24 Range/Units 03:13 08:52 Chloride 114 H 116 H (96-109) mmol/L BUN 35.3 H 31 H (9.0-27.0) mg/dL BUN/Creatinine Ratio 39.22 H (12.00-20.00) Ratio Glucose 69 L (74-99) mg/dL Calcium 8.4 L (8.7-10.3) mg/dL Total Protein 5.8 L (6.3-8.2) g/dL Albumin 3.1 L (3.5-5.0) g/dL
[2024-05-16] MEDS: ALPRAZolam 0.25 MG TAB PO STA (14:38)
[2024-05-17] MEDS: PRAMIPEXOLE 0.125 MG TAB PO SCH (00:45)
--- NOTE | 2024-05-17 13:56 | P.PN ---
Progress Note - Text Progress Note Date: 05/17/24 IDENTIFYING DATA: Patient is a 73-year-old female, and living with REASON FOR CONSULT: Severe anxiety and delusional parasitosis INTERVAL HISTORY: Patient seen in her room and readily agreed to interview. She states feeling "much better "today. She reports recently seeing bug bites on her and that prompted issues with her and her due to her not believing patient. She no longer feels like bugs are biting her and she denies seeing them as well. She mentions recently having to get her house fumigated due to fleas and she feels like this prompted the delusions. She no longer feels like her is against her and in fact feels like her is very supportive and was looking out for her. She denies any suicidal homicidal ideations. She denies any auditory or visual hallucinations. She states following up with psychiatrist and therapist at [facility]. Maps revealed Magaly WALL provides patient's Ritalin at that location. Patient agreeable to follow-up with this provider upon discharge as she missed her appointment this past Wednesday due to being in the hospital. She denies any side effects to the Seroquel. MENTAL STATUS EXAM: General Appearance: Patient appears to be stated age. Patient appears to have fair hygiene and grooming wearing hospital gown with good eye contact. Behavior: Patient is calmly sitting in bed without any agitated behavior. Speech: Talkative, but normal tone and volume Mood/Affect: "Much better "and affect is full range, reactive Suicidality/Homicidality: vehemently denies any suicidal or homicidal ideation Perceptions: There are no auditory or visual hallucinations Though content/process: No longer endorses delusions or paranoia Judgment and insight: Improving IMPRESSIONS: Psychosis, unspecified History of ADHD PLAN: -At this time patient DOES NOT meet criteria for inpatient psychiatric admission. -Continue Seroquel 25 mg twice daily -Can discontinue 1:1 sitter at this time as patient is not currently an imminent threat to themselves -scaffold worker to provide patient with outpatient mental health/psychiatry resources for appropriate follow up upon discharge. Patient currently sees Magaly WALL at [facility] and should follow-up with this provider upon discharge -Communicated plan to patient's nurse -Psychiatry will sign off at this time -Please contact with any questions.
[2024-05-17 14:52] VITALS: BP 114/68; PULSE 63; RESP 16; TEMP 98.6
--- NOTE | 2024-05-17 15:04 | P.DS ---
Providers Date of admission: 05/14/24 03:30 Attending physician: Artur Ribera MD Consults: 05/14/24 03:29 Consult Physician Routine Consulting Provider: Kwesi Garcia Consult Reason/Comments: Altered Mental status. Do you want consulting provider notified?: Yes Consult Physician Routine Consulting Provider: Mike Lewis Consult Reason/Comments: Severe anxiety. Delusional parasitosis Do you want consulting provider notified?: Yes Primary care physician: Leslie Malik DO Hospital Course: Discharge diagnoses; #Psychosis/encephalopathy possibly secondary to hypothyroidism #Delusions/hallucinations #Hypothyroidism #Hypokalemia #Acute kidney injury - resolved #ADHD #Anxiety Hospital course; 73-year-old female with anxiety disorder and multiple other psychiatric issues came in with complaints of multiple bug bites. Patient has history of ADHD and is on Ritalin. Patient was having delusions patient has extremely low TSH less than 0.015. I am obtaining T4 at this time. Patient potassium is low. Patient is not septic and patient is not delirious at this time. Patient has multiple other nonspecific complaints and although workup for those complaints have all been negative. Patient had history of thyroidectomy in the past patient had a CT of the head and CT angiogram of the head both are negative these were ordered by neurology. 05/15/24 - Patient seen at bedside today. She states that she is feeling about the same as she has been. Neurology had been consulted to see the patient, and following their consultation they noted the patient was very tangential in providing her history. Per neurology's report, the patient stated that she had a facelift done in January 2024 and has been having complications including 1 from the anesthetic and that she has been hallucinating but failed to elaborate further. She denied fever and neck pain however stated that she recently had a headache over the left frontal and stated that it was moderatesevere and felt as though was a sharp pain. She had associated nausea however denies photophobia or phonophobia and denies any focal weakness or speech difficulty. Additionally, psychiatry was consulted and saw the patient. Per their discussion with the patient they noted that she is additionally having increased anxiety over the past 6-8 weeks, and she denies any previous psychiatric hospitalizations. Per their recommendation this acute psychosis is likely secondary to patient's hypothyroidism. Per their recommendation, patient will begin Seroquel 25 mg twice daily and will increase if hallucinations continue, continue her home Ritalin 20 mg twice daily, discontinue Xanax and Restoril. Upon discharge patient levothyroxine will be switched from 130s of micrograms daily to 100 mcg daily. Further recommendation of the patient's psych medications will be made as per psych's further recommendation. 05/16/24 - Patient seen at bedside today. She continues to feel that she has bugs all over close in her skin that are biting her. Continues to assert that there are bugs all over her house. Patient stated previously that she "knows" that they are not really there but she continues to see them and feel little of the time. Patient is becoming agitated as she feels that nobody believes her. Patient did express a desire to leave AMA earlier today as she was becoming frustrated, the patient has been optimized medically however the patient's practitioner to have her admitted due to psychiatric reasons. Patient had an EEG done yesterday (05/15) which was deemed mildly abnormal due to the presence of mixed frequencies including fast and slow frequencies, suggestive of mild encephalopathy or medication effect. Psychology has been consulted and have informed that they are continue to follow, will wait for further recommendations from them. 05/17/24 - Patient seen at bedside today. Patient continues to have the same acute complaints of feeling like she is seeing bugs all over her skin, all over her bed, all over the room. Which has continued because some agitation, the patient yesterday explore the possibility of leaving AMA however her petitioned if the patient admitted. Awaiting further evaluation recommendation from psychiatry. Throughout the day yesterday, patient received nicotine patch, one 0.25 mg dose of Xanax and one 7.5 mg dose of Restoril. Patient cleared by psychiatry for discharge and see medications, with instructions to follow-up with psychiatry outpatient. PHYSICAL EXAMINATION: GENERAL: The patient is alert and oriented x3, not in any acute distress. However confused and with continuing hallucinations. HEENT: Pupils are round and equally reacting to light. EOMI. No scleral icterus. No conjunctival pallor. Normocephalic, atraumatic. No pharyngeal erythema. No thyromegaly. CARDIOVASCULAR: S1 and S2 present. No murmurs, rubs, or gallops. PULMONARY: Chest is clear to auscultation, no wheezing or crackles. ABDOMEN: Soft, nontender, nondistended, normoactive bowel sounds. No palpable organomegaly. MUSCULOSKELETAL: No joint swelling or deformity. EXTREMITIES: No cyanosis, clubbing, or pedal edema. NEUROLOGICAL: Gross neurological examination did not reveal any focal deficits. Confused with continuing hallucinations. SKIN: Patient does have some rash consistent with scratching; scabbing present on the lower legs and arms secondary to scratching. Dictation was produced using [employer] dictation software. please excuse any grammatical, word or spelling errors. Dr. Kia MD I have performed a history and physical examination and medical decision making of this patient, discussed the same with the the resident, and agree with the assessment and plan as written. I performed brief physical exam. Patient Condition at Discharge: Fair Plan - Discharge Summary Discharge Rx Participant: No New Discharge Prescriptions: New Permethrin 5% Cream [Elimite] 1 applic TOPICAL ONCE #60 gm Levothyroxine Sodium 100 mcg PO DAILY #30 tab Continue Tirzepatide [Mounjaro] 5 mg SQ TU Acetylcysteine [Nac] 500 mg PO DAILY Mupirocin 2% Oint [Bactroban 2% Oint] 1 applic TOPICAL TID PRN PRN Reason: Rash Desonide [Cal-Joseph 0.05%] 1 applic TOPICAL BID Nystatin [Nystatin Oral Susp] 5 ml PO DAILY Methylphenidate HCl [Ritalin] 20 mg PO BID Omeprazole 40 mg PO DAILY Albuterol Inhaler [Ventolin Hfa Inhaler] 2 puff INHALATION RT-Q4H PRN PRN Reason: Shortness Of Breath Ondansetron Odt [Zofran ODT] 8 mg PO Q8HR PRN PRN Reason: Nausea Triamcinolone 0.1% Paste [Oralone 0.1% Paste] 1 applic MUCOUS MEM BID DULoxetine HCL [Cymbalta] 60 mg PO DAILY Pramipexole [Mirapex] 0.125 mg PO HS Doxepin [SINEquan] 10 - 20 mg PO HS PRN PRN Reason: sleep/insomnia Discontinued Doxycycline Monohydrate 100 mg PO BID Triamterene/Hydrochlorothiazid [Triamterene-Hctz 37.5-25 mg Tb] 1 tab PO DAILY Levothyroxine Sodium [Synthroid] 137 mcg PO DAILY Discharge Medication List Albuterol Inhaler [Ventolin Hfa Inhaler] 2 puff INHALATION RT-Q4H PRN 01/03/24 [History] Omeprazole 40 mg PO DAILY 01/03/24 [History] Tirzepatide [Mounjaro] 5 mg SQ TU 01/03/24 [History] Acetylcysteine [Nac] 500 mg PO DAILY 05/14/24 [History] DULoxetine HCL [Cymbalta] 60 mg PO DAILY 05/14/24 [History] Desonide [Cal-Joseph 0.05%] 1 applic TOPICAL BID 05/14/24 [History] Doxepin [SINEquan] 10 - 20 mg PO HS PRN 05/14/24 [History] Methylphenidate HCl [Ritalin] 20 mg PO BID 05/14/24 [History] Mupirocin 2% Oint [Bactroban 2% Oint] 1 applic TOPICAL TID PRN 05/14/24 [History] Nystatin [Nystatin Oral Susp] 5 ml PO DAILY 05/14/24 [History] Ondansetron Odt [Zofran ODT] 8 mg PO Q8HR PRN 05/14/24 [History] Permethrin 5% Cream [Elimite] 1 applic TOPICAL ONCE #60 gm 05/14/24 [Rx] Pramipexole [Mirapex] 0.125 mg PO HS 05/14/24 [History] Triamcinolone 0.1% Paste [Oralone 0.1% Paste] 1 applic MUCOUS MEM BID 05/14/24 [History] Levothyroxine Sodium 100 mcg PO DAILY #30 tab 05/15/24 [Rx] Follow up Appointment(s)/Referral(s): Elmira Hamlin MD [Medical Doctor] - 1 Week Leslie Malik DO [Primary Care Provider] - 1-2 days Patient Instructions/Handouts: Hypokalemia (ED), Dermatitis (ED) Discharge/Stand Alone Forms: Community Resources, Outpatient Counseling Discharge Disposition: HOME SELF-CARE
== END 2024-05-17 15:49 | disposition home or self-care (01) ==
LOC: EC 22:30 → 4SSUR 05-14 03:30
PROVIDERS: ADMIT Internal Medicine; ATTEND Internal Medicine
CPT/HCPCS: 36415; 70450; 70496; 70498; 71046; 76536; 80048; 80053; 80306; 81001; 82140; 82607; 82746; 83605; 83880; 84439; 84443; 84484; 85025; 85610; 85730; 86140; 93005; 95816; 96360; 96361; 99285